=== PATIENT | female | born 1970 | race Caucasian/White ===

== ENCOUNTER 2016-05-24 01:07 | Emergency (ER) | payer MEDICARE ==
[2013-07-26 09:39] VITALS: BMI 42.9
[~2016-05-24 01:07] MED LIST: ATIVAN1 MG; CYMBALTA60 MG PO; DILANTIN50 MG PO; HYDROCHLOROTHIA25 MG PO; K-DUR20 MEQ PO; KEPPRA500 MG PO; NORCO 10/325 TA1 TA1 PO; TOPAMAX50 MG PO
== END 2016-05-24 02:20 | disposition home or self-care (01) ==
LOC: D.ER 01:07
DX: K08.89 Other specified disorders of teeth and supporting structures (principal); G40.909 Epilepsy, unspecified, not intractable, without status epilepticus; F43.10 Post-traumatic stress disorder, unspecified

== ENCOUNTER 2016-10-03 10:02 | Emergency (ER) | payer MEDICARE ==
[2013-07-26 09:39] VITALS: BMI 42.9
== END 2016-10-03 13:15 | disposition home or self-care (01) ==
LOC: D.ER 10:02
DX: F41.0 Panic disorder [episodic paroxysmal anxiety] (principal); F43.10 Post-traumatic stress disorder, unspecified; G40.909 Epilepsy, unspecified, not intractable, without status epilepticus; G43.909 Migraine, unspecified, not intractable, without status migrainosus

== ENCOUNTER 2016-12-03 02:28 | Emergency (ER) | payer MEDICARE ==
[2013-07-26 09:39] VITALS: BMI 42.9
[2016-12-03 03:19] LABS: BASOPHILS 0.2 % (0-2); EOSINOPHILS 0.3 % (0-7); HEMATOCRIT 40.6 % (36.0-48.0); IMMATURE GRANULOCYTES 0.2 % (0-5); LYMPHOCYTES 23.4 % (15-50); MCH 30.8 pg (26.0-34.0); MCHC 34.5 g/dL (31.0-37.0); MCV 89.2 fL (80.0-100.0); MEAN PLATELET VOLUME 9.9 fL (7.4-10.4); MONOCYTES 8.9 % (2-11); RBC 4.55 10x6/uL (4.00-5.40); WBC 13.3 10x3/uL (4.8-10.8)
[2016-12-03 03:21] LABS: PLATELET COUNT 235 10x3/uL (130-400)
[2016-12-03 03:32] LABS: ALBUMIN 3.7 g/dL (3.4-5.0); ANION GAP 14.5 mmol/L (8-16); BILIRUBIN - TOTAL 0.51 mg/dL (0.2-1.3); CALCIUM 9.6 mg/dL (8.5-10.1); CARBON DIOXIDE 30.1 mmol/L (21.0-32.0); CREATININE - SERUM 1.1 mg/dL (0.6-1.3); PROTEIN - SERUM 7.4 g/dL (6.4-8.2)
[2016-12-03 03:33] LABS: POTASSIUM - SERUM 2.6 mmol/L (3.5-5.1)
[2016-12-03 04:19] LABS: UDS - AMPHET NEGATIVE QUAL (NEGATIVE); UDS - BARB NEGATIVE QUAL (NEGATIVE); UDS - BENZO NEGATIVE QUAL (NEGATIVE); UDS - COCAINE NEGATIVE QUAL (NEGATIVE); UDS - METH NEGATIVE QUAL (NEGATIVE); UDS - OPIATE NEGATIVE QUAL (NEGATIVE); UDS - PCP NEGATIVE QUAL (NEGATIVE); UDS - THC NEGATIVE QUAL (NEGATIVE)
[2016-12-03 04:26] LABS: APPEARANCE CLEAR (CLEAR); BILIRUBIN NEGATIVE (NEGATIVE); COLOR YELLOW (YELLOW); GLUCOSE NEGATIVE (NEGATIVE); KETONE NEGATIVE (NEGATIVE); LEUKOCYTE ESTERASE 1+ (NEGATIVE); NITRITE NEGATIVE (NEGATIVE); PROTEIN TRACE mg/dL (NEGATIVE); UROBILINOGEN NORMAL (NORMAL)
[2016-12-03 04:28] LABS: BACTERIA FEW /hpf (NONE SEEN); EPITHELIAL CELLS 0-5 /hpf (0-5); RED CELLS - URINE 0-5 /hpf (0-5)
== END 2016-12-03 05:00 | disposition home or self-care (01) ==
LOC: D.ER 02:28
PROVIDERS: Emergency Medicine
DX: R56.9 Unspecified convulsions (principal)

== ENCOUNTER → 2017-01-13 13:56 | Outpatient (CLI) | payer MEDICARE ==
[2013-07-26 09:39] VITALS: BMI 42.9
== END | disposition home or self-care (01) ==
LOC: D.MRI 13:56
DX: M79.671 Pain in right foot (principal); Z85.820 Personal history of malignant melanoma of skin

== ENCOUNTER 2017-01-31 22:21 | Emergency (ER) | payer MEDICARE ==
[2013-07-26 09:39] VITALS: BMI 42.9
[2017-01-31 22:48] LABS: BASOPHILS 0.3 % (0-2); EOSINOPHILS 0.9 % (0-7); HEMOGLOBIN 13.7 g/dL (12-16); IMMATURE GRANULOCYTES 0.3 % (0-5); LYMPHOCYTES 30.9 % (15-50); MCH 31.5 pg (26.0-34.0); MCHC 34.3 g/dL (31.0-37.0); MEAN PLATELET VOLUME 10.1 fL (7.4-10.4); MONOCYTES 7.7 % (2-11); NEUTROPHILS 59.9 % (40-80); PLATELET COUNT 202 10x3/uL (130-400); RBC 4.35 10x6/uL (4.00-5.40); RDW 12.1 % (11.5-14.5); WBC 10.5 10x3/uL (4.8-10.8)
[2017-01-31 22:57] LABS: HCG SERUM NEGATIVE (NEGATIVE)
[2017-01-31 23:01] LABS: ALBUMIN 3.6 g/dL (3.4-5.0); BILIRUBIN - TOTAL 0.35 mg/dL (0.2-1.3); CALCIUM 9.2 mg/dL (8.5-10.1); CARBON DIOXIDE 24.6 mmol/L (21.0-32.0); CREATININE - SERUM 1.3 mg/dL (0.6-1.3); POTASSIUM - SERUM 3.6 mmol/L (3.5-5.1); PROTEIN - SERUM 7.2 g/dL (6.4-8.2)
[2017-01-31 23:48] LABS: APPEARANCE CLEAR (CLEAR); BILIRUBIN NEGATIVE (NEGATIVE); COLOR YELLOW (YELLOW); GLUCOSE NEGATIVE (NEGATIVE); KETONE NEGATIVE (NEGATIVE); LEUKOCYTE ESTERASE NEGATIVE (NEGATIVE); NITRITE NEGATIVE (NEGATIVE); PROTEIN NEGATIVE (NEGATIVE); UROBILINOGEN NORMAL (NORMAL)
== END 2017-02-01 01:30 | disposition home or self-care (01) ==
LOC: D.ER 22:21
PROVIDERS: Family Medicine
DX: K57.92 Diverticulitis of intestine, part unspecified, without perforation or abscess without bleeding (principal)

== ENCOUNTER 2017-02-07 22:54 | Emergency (ER) | payer MEDICARE ==
[2013-07-26 09:39] VITALS: BMI 42.9
[2017-02-08 00:28] LABS: BASOPHILS 0.3 % (0-2); EOSINOPHILS 0.3 % (0-7); HEMATOCRIT 39.4 % (36.0-48.0); HEMOGLOBIN 13.2 g/dL (12-16); IMMATURE GRANULOCYTES 0.5 % (0-5); LYMPHOCYTES 23.6 % (15-50); MCH 31.1 pg (26.0-34.0); MCHC 33.5 g/dL (31.0-37.0); MCV 92.7 fL (80.0-100.0); MEAN PLATELET VOLUME 10.2 fL (7.4-10.4); MONOCYTES 8.2 % (2-11); NEUTROPHILS 67.1 % (40-80); PLATELET COUNT 272 10x3/uL (130-400); RBC 4.25 10x6/uL (4.00-5.40); RDW 11.8 % (11.5-14.5); WBC 10.9 10x3/uL (4.8-10.8)
[2017-02-08 00:58] LABS: APPEARANCE CLEAR (CLEAR); BILIRUBIN NEGATIVE (NEGATIVE); COLOR YELLOW (YELLOW); GLUCOSE NEGATIVE (NEGATIVE); KETONE NEGATIVE (NEGATIVE); NITRITE NEGATIVE (NEGATIVE); PROTEIN NEGATIVE (NEGATIVE); UROBILINOGEN NORMAL (NORMAL)
[2017-02-08 00:58] LABS: ALBUMIN 3.5 g/dL (3.4-5.0); ANION GAP 11.5 mmol/L (8-16); BILIRUBIN - TOTAL 0.17 mg/dL (0.2-1.3); CALCIUM 9.1 mg/dL (8.5-10.1); CREATININE - SERUM 1.1 mg/dL (0.6-1.3); POTASSIUM - SERUM 3.5 mmol/L (3.5-5.1)
[2017-02-08 01:13] LABS: UDS - AMPHET NEGATIVE QUAL (NEGATIVE); UDS - BARB NEGATIVE QUAL (NEGATIVE); UDS - BENZO NEGATIVE QUAL (NEGATIVE); UDS - COCAINE NEGATIVE QUAL (NEGATIVE); UDS - OPIATE POSITIVE QUAL (NEGATIVE); UDS - PCP NEGATIVE QUAL (NEGATIVE); UDS - THC NEGATIVE QUAL (NEGATIVE)
== END 2017-02-08 04:27 | disposition home or self-care (01) ==
LOC: D.ER 22:54
PROVIDERS: Family Medicine
DX: G40.909 Epilepsy, unspecified, not intractable, without status epilepticus (principal); K57.92 Diverticulitis of intestine, part unspecified, without perforation or abscess without bleeding; F17.200 Nicotine dependence, unspecified, uncomplicated

== ENCOUNTER 2017-03-27 20:33 | Emergency (ER) | payer MEDICARE ==
[2013-07-26 09:39] VITALS: BMI 42.9
[2017-03-28 00:26] LABS: BASOPHILS 0.3 % (0-2); EOSINOPHILS 0.1 % (0-7); HEMATOCRIT 42.7 % (36.0-48.0); HEMOGLOBIN 14.4 g/dL (12-16); IMMATURE GRANULOCYTES 0.3 % (0-5); LYMPHOCYTES 16.2 % (15-50); MCH 30.7 pg (26.0-34.0); MCHC 33.7 g/dL (31.0-37.0); MEAN PLATELET VOLUME 10.7 fL (7.4-10.4); MONOCYTES 4.6 % (2-11); NEUTROPHILS 78.5 % (40-80); RBC 4.69 10x6/uL (4.00-5.40)
[2017-03-28 00:27] LABS: PLATELET COUNT 184 10x3/uL (130-400)
[2017-03-28 00:36] LABS: APPEARANCE HAZY (CLEAR); BACTERIA FEW /hpf (NONE SEEN); BILIRUBIN NEGATIVE (NEGATIVE); COLOR YELLOW (YELLOW); EPITHELIAL CELLS 0-5 /hpf (0-5); GLUCOSE NEGATIVE (NEGATIVE); KETONE NEGATIVE (NEGATIVE); NITRITE NEGATIVE (NEGATIVE); PROTEIN TRACE mg/dL (NEGATIVE); RED CELLS - URINE 0-5 /hpf (0-5); UROBILINOGEN NORMAL (NORMAL)
[2017-03-28 00:39] LABS: UDS - AMPHET NEGATIVE QUAL (NEGATIVE); UDS - BARB NEGATIVE QUAL (NEGATIVE); UDS - BENZO NEGATIVE QUAL (NEGATIVE); UDS - COCAINE NEGATIVE QUAL (NEGATIVE); UDS - OPIATE NEGATIVE QUAL (NEGATIVE); UDS - PCP NEGATIVE QUAL (NEGATIVE); UDS - THC NEGATIVE QUAL (NEGATIVE)
[2017-03-28 00:54] LABS: ALBUMIN 3.8 g/dL (3.4-5.0); BILIRUBIN - TOTAL 0.3 mg/dL (0.2-1.3); CALCIUM 9.7 mg/dL (8.5-10.1); CARBON DIOXIDE 24.1 mmol/L (21.0-32.0); CREATININE - SERUM 1.1 mg/dL (0.6-1.3); POTASSIUM - SERUM 4.1 mmol/L (3.5-5.1); PROTEIN - SERUM 7.3 g/dL (6.4-8.2)
== END 2017-03-28 01:47 | disposition home or self-care (01) ==
LOC: D.ER 20:33
PROVIDERS: Family Medicine
DX: R56.9 Unspecified convulsions (principal); N39.0 Urinary tract infection, site not specified; R00.0 Tachycardia, unspecified

== ENCOUNTER → 2017-05-19 10:35 | Outpatient (CLI) | payer MEDICARE ==
[2013-07-26 09:39] VITALS: BMI 42.9
== END | disposition home or self-care (01) ==
LOC: D.US 10:35
DX: R93.8 Abnormal findings on diagnostic imaging of other specified body structures (principal)

== ENCOUNTER → 2017-05-28 07:06 | Outpatient (CLI) | payer MEDICARE ==
[2013-07-26 09:39] VITALS: BMI 42.9
== END | disposition home or self-care (01) ==
LOC: D.US 07:06
DX: E04.1 Nontoxic single thyroid nodule (principal); Z85.820 Personal history of malignant melanoma of skin

== ENCOUNTER 2017-05-28 20:28 | Emergency (ER) | payer MEDICARE ==
[2013-07-26 09:39] VITALS: BMI 42.9
[2017-05-28 22:02] LABS: BASOPHILS 0.2 % (0-2); HEMATOCRIT 40.5 % (36.0-48.0); HEMOGLOBIN 13.5 g/dL (12-16); IMMATURE GRANULOCYTES 0.2 % (0-5); LYMPHOCYTES 26.1 % (15-50); MCH 30.8 pg (26.0-34.0); MCHC 33.3 g/dL (31.0-37.0); MCV 92.3 fL (80.0-100.0); MEAN PLATELET VOLUME 9.9 fL (7.4-10.4); MONOCYTES 7.7 % (2-11); NEUTROPHILS 64.8 % (40-80); PLATELET COUNT 192 10x3/uL (130-400); RBC 4.39 10x6/uL (4.00-5.40); RDW 12.1 % (11.5-14.5); WBC 8.3 10x3/uL (4.8-10.8)
[2017-05-28 22:20] LABS: ALBUMIN 3.8 g/dL (3.4-5.0); ANION GAP 15.1 mmol/L (8-16); BILIRUBIN - TOTAL 0.3 mg/dL (0.2-1.3); CARBON DIOXIDE 25.7 mmol/L (21.0-32.0); CREATININE - SERUM 1.4 mg/dL (0.6-1.3); POTASSIUM - SERUM 3.8 mmol/L (3.5-5.1); PROTEIN - SERUM 7.1 g/dL (6.4-8.2)
[2017-05-28 23:14] LABS: COLOR DK YELLOW (YELLOW)
[2017-05-28 23:15] LABS: APPEARANCE HAZY (CLEAR); BILIRUBIN NEGATIVE (NEGATIVE); GLUCOSE NEGATIVE (NEGATIVE); KETONE NEGATIVE (NEGATIVE); NITRITE NEGATIVE (NEGATIVE); PROTEIN NEGATIVE (NEGATIVE); UROBILINOGEN NORMAL (NORMAL)
[2017-05-28 23:16] LABS: BACTERIA FEW /hpf (NONE SEEN); EPITHELIAL CELLS 0-5 /hpf (0-5)
== END 2017-05-28 23:03 | disposition home or self-care (01) ==
LOC: D.ER 20:28
PROVIDERS: Family Medicine
DX: R56.9 Unspecified convulsions (principal)

== ENCOUNTER → 2017-06-15 08:58 | Outpatient (CLI) | payer MEDICARE ==
[2013-07-26 09:39] VITALS: BMI 42.9
== END | disposition home or self-care (01) ==
LOC: D.NM 08:58
DX: E04.1 Nontoxic single thyroid nodule (principal)

== ENCOUNTER 2017-06-24 18:24 | Emergency (ER) | payer MEDICARE, MEDICAID ==
[2013-07-26 09:39] VITALS: BMI 42.9
[2017-06-24 20:50] LABS: APPEARANCE CLEAR (CLEAR); BILIRUBIN NEGATIVE (NEGATIVE); COLOR YELLOW (YELLOW); GLUCOSE NEGATIVE (NEGATIVE); KETONE NEGATIVE (NEGATIVE); NITRITE NEGATIVE (NEGATIVE); PROTEIN NEGATIVE (NEGATIVE); UROBILINOGEN NORMAL (NORMAL)
[2017-06-24 20:51] LABS: HCG URINE NEGATIVE (NEGATIVE)
[2017-06-24 20:51] LABS: BASOPHILS 0.2 % (0-2); EOSINOPHILS 0.1 % (0-7); HEMATOCRIT 43.1 % (36.0-48.0); HEMOGLOBIN 14.9 g/dL (12-16); IMMATURE GRANULOCYTES 0.3 % (0-5); LYMPHOCYTES 13.6 % (15-50); MCH 31.2 pg (26.0-34.0); MCHC 34.6 g/dL (31.0-37.0); MCV 90.2 fL (80.0-100.0); MONOCYTES 5.5 % (2-11); NEUTROPHILS 80.3 % (40-80); PLATELET COUNT 225 10x3/uL (130-400); RBC 4.78 10x6/uL (4.00-5.40); RDW 11.9 % (11.5-14.5); WBC 14.4 10x3/uL (4.8-10.8)
[2017-06-24 21:04] LABS: ALBUMIN 4.3 g/dL (3.4-5.0); ANION GAP 16.8 mmol/L (8-16); BILIRUBIN - TOTAL 0.32 mg/dL (0.2-1.3); CALCIUM 9.6 mg/dL (8.5-10.1); CARBON DIOXIDE 22.7 mmol/L (21.0-32.0); CREATININE - SERUM 1.2 mg/dL (0.6-1.3); POTASSIUM - SERUM 3.5 mmol/L (3.5-5.1); PROTEIN - SERUM 7.9 g/dL (6.4-8.2)
== END 2017-06-25 00:19 | disposition home or self-care (01) ==
LOC: D.ER 18:24
PROVIDERS: Emergency Medicine
DX: R56.9 Unspecified convulsions (principal)

== ENCOUNTER 2017-07-08 14:07 | Emergency (ER) | payer MEDICARE, MEDICAID ==
[2013-07-26 09:39] VITALS: BMI 42.9
[~2017-07-08 14:07] MED LIST changes: -ATIVAN1 MG; +ATIVAN1 MG PO
[2017-08-10] MEDS ORDERED: EFFEXOR XR75 MG PO (12:25)
[2017-08-10] MEDS ORDERED: DESERYL100 MG PO (12:26)
[2017-08-10] MEDS ORDERED: ALDACTONE50 MG PO (12:27)
[2017-08-10] MEDS ORDERED: TROKENDI XR100 MG PO (12:28)
[2017-08-10] MEDS ORDERED: HYDROCODON-ACE1 EAC7 PO (12:28)
[2017-08-11] MEDS ORDERED: HYDROCODONE-APA1 TAB PO (08:48)
== END 2017-07-08 19:56 | disposition home or self-care (01) ==
LOC: D.ER 14:07
DX: F07.81 Postconcussional syndrome (principal); G40.909 Epilepsy, unspecified, not intractable, without status epilepticus

== ENCOUNTER → 2017-07-23 09:02 | Outpatient (CLI) | payer MEDICARE, MEDICAID ==
[2013-07-26 09:39] VITALS: BMI 42.9
[~2017-07-23 09:02] MED LIST changes: +ALDACTONE50 MG PO; +DESERYL100 MG PO; +EFFEXOR XR75 MG PO; +HYDROCODON-ACE1 EAC7 PO; +HYDROCODONE-APA1 TAB PO; +TROKENDI XR100 MG PO; +ZOFRAN4 MG PO
[2017-09-24 18:06] VITALS: BMI 33.0
== END | disposition home or self-care (01) ==
LOC: D.US 09:02
DX: R59.9 Enlarged lymph nodes, unspecified (principal); Z85.820 Personal history of malignant melanoma of skin

== ENCOUNTER → 2017-07-30 07:58 | Outpatient (CLI) | payer MEDICARE, MEDICAID ==
[2013-07-26 09:39] VITALS: BMI 42.9
[2017-09-24 18:06] VITALS: BMI 33.0
== END | disposition home or self-care (01) ==
LOC: D.CT 07:58
DX: R19.04 Left lower quadrant abdominal swelling, mass and lump (principal)

== ENCOUNTER 2017-08-10 18:05 | Emergency (ER) | payer MEDICARE, MEDICAID ==
[2013-07-26 09:39] VITALS: BMI 42.9
[~2017-08-10 18:05] MED LIST changes: -HYDROCODONE-APA1 TAB PO; -ZOFRAN4 MG PO
[2017-08-10 18:44] LABS: BASOPHILS 0.3 % (0-2); EOSINOPHILS 0.9 % (0-7); HEMATOCRIT 43.1 % (36.0-48.0); HEMOGLOBIN 14.6 g/dL (12-16); IMMATURE GRANULOCYTES 0.4 % (0-5); LYMPHOCYTES 33.3 % (15-50); MCH 30.8 pg (26.0-34.0); MCHC 33.9 g/dL (31.0-37.0); MCV 90.9 fL (80.0-100.0); MONOCYTES 8.2 % (2-11); NEUTROPHILS 56.9 % (40-80); PLATELET COUNT 204 10x3/uL (130-400); RBC 4.74 10x6/uL (4.00-5.40); RDW 12.2 % (11.5-14.5); WBC 10.4 10x3/uL (4.8-10.8)
[2017-08-10 18:57] LABS: APTT 23.8 SECONDS (22.8-39.4); INR 0.94 (0.85-1.17); PROTIME 12.2 SECONDS (11.6-15.0)
[2017-08-10 19:06] LABS: ALBUMIN 3.9 g/dL (3.4-5.0); ANION GAP 14.6 mmol/L (8-16); BILIRUBIN - TOTAL 0.37 mg/dL (0.2-1.3); CALCIUM 9.4 mg/dL (8.5-10.1); CARBON DIOXIDE 24.8 mmol/L (21.0-32.0); POTASSIUM - SERUM 4.4 mmol/L (3.5-5.1); PROTEIN - SERUM 7.8 g/dL (6.4-8.2)
[2017-08-10 21:00] LABS: APPEARANCE CLEAR (CLEAR); BILIRUBIN NEGATIVE (NEGATIVE); COLOR YELLOW (YELLOW); GLUCOSE NEGATIVE (NEGATIVE); KETONE NEGATIVE (NEGATIVE); NITRITE NEGATIVE (NEGATIVE); PROTEIN NEGATIVE (NEGATIVE); SPECIFIC GRAVITY 1.015 (1.005-1.020); UROBILINOGEN NORMAL (NORMAL)
[2017-08-10 21:05] LABS: UDS - AMPHET NEGATIVE QUAL (NEGATIVE); UDS - BARB NEGATIVE QUAL (NEGATIVE); UDS - BENZO NEGATIVE QUAL (NEGATIVE); UDS - COCAINE NEGATIVE QUAL (NEGATIVE); UDS - OPIATE POSITIVE QUAL (NEGATIVE); UDS - PCP NEGATIVE QUAL (NEGATIVE); UDS - THC NEGATIVE QUAL (NEGATIVE)
[2017-08-11] MEDS ORDERED: HYDROCODONE-APA1 TAB PO (08:48)
== END 2017-08-10 22:23 | disposition home or self-care (01) ==
LOC: D.ER 18:05
PROVIDERS: Emergency Medicine; Family Medicine
DX: R10.9 Unspecified abdominal pain (principal); R56.9 Unspecified convulsions

== ENCOUNTER → 2017-08-11 06:01 | Day surgery (SDC) | payer MEDICARE, MEDICAID ==
[~2017-08-11] VITALS: Ht 160 cm; Wt 104.3 kg
--- NOTE | ~2017-08-11 | OP ---
PATIENT NAME: CHICHO MCLAUGHLIN MEDICAL RECORD: [id number] :74 LOCATION:[facility] ADMISSION DATE: SURGEON: ANDRES CHRISTIANSON MD DATE OF OPERATION: 08/11/2017 PREOPERATIVE DIAGNOSES: 1. Bilateral lower quadrant abdominal subcutaneous masses. 2. Morbid obesity. POSTOPERATIVE DIAGNOSES: 1. Bilateral lower quadrant abdominal subcutaneous masses. 2. Morbid obesity. PROCEDURE: Excision of bilateral lower quadrant subcutaneous masses. SURGEON: Andres Christianson MD REPORT OF PROCEDURE: The patient's abdomen was prepped and draped in sterile fashion. We approached the left side first. In the lateral aspect of the left lower quadrant, a transverse incision was made overlying the mass. We dissected through the subcutaneous tissues and was eventually able to encounter a firm, calcified, fatty appearing mass that was just overlying the patient's fascia, but not incorporated with the fascia. This was elevated and completely removed. It did not penetrate into the muscular tissues. The mass was about 2.5 cm in greatest diameter. This was sent off for permanent specimen. We irrigated out the wound with normal saline and then reapproximated the subcutaneous tissues with interrupted 3-0 Vicryls. The skin was then closed with running subcutaneous 5-0 Monocryl. We then approached the right lower quadrant. On the lateral aspect of the inferior right lower quadrant, a transverse incision was made. We dissected down and encountered another 2.5 cm calcified, fatty lesion that was floating in the subcutaneous fat. This was completely excised and sent off for permanent specimen. We irrigated out the wound and stopped any bleeding with electrocautery. The subcutaneous tissues were reapproximated with interrupted 3-0 Vicryls and the skin was reapproximated with running subcutaneous 5-0 Monocryl. A total of 10 mL of 0.25% Marcaine with epinephrine was infused into the surrounding tissues and the wounds were dressed appropriately. COMPLICATIONS: None. CONDITION: Stable. ANESTHESIA: General endotracheal and local. BLOOD LOSS: Minimal. TRANSINT:[id number] Voice Confirmation ID: [id number] DOCUMENT ID: [id number] OPERATIVE REPORT [id number] EDITH MCLUAGHLINDILINDSAY Barrera ANDRES CHRISTIANSON MD at 1413 CC: LUZ ROMANO [id number] DICTATION DATE: 08/11/17 0854 WEBSITE DEVELOPER: 08/11/17 1015 [facility] [address] [place], [facility]901
[~2017-08-11 06:01] MED LIST changes: +HYDROCODONE-APA1 TAB PO; +ZOFRAN4 MG PO
[2017-08-11 06:56] VITALS: BP 120/85; Ht 160 cm; Wt 104.3 kg
== END | disposition home or self-care (01) ==
LOC: D.OPS 06:01 → D.PAN 08:00
DX: R22.9 Localized swelling, mass and lump, unspecified (principal); E66.01 Morbid (severe) obesity due to excess calories; Z01.812 Encounter for preprocedural laboratory examination

== ENCOUNTER 2017-09-12 16:10 | Emergency (ER) | payer MEDICARE, MEDICAID ==
[2017-08-11 06:56] VITALS: BMI 40.8
[~2017-09-12 16:10] MED LIST changes: -ZOFRAN4 MG PO
[2017-09-12 17:08] LABS: BASOPHILS 0.2 % (0-2); EOSINOPHILS 0.5 % (0-7); HEMATOCRIT 41.4 % (36.0-48.0); IMMATURE GRANULOCYTES 0.4 % (0-5); LYMPHOCYTES 16.3 % (15-50); MCH 30.6 pg (26.0-34.0); MCHC 33.8 g/dL (31.0-37.0); MCV 90.6 fL (80.0-100.0); MEAN PLATELET VOLUME 10.4 fL (7.4-10.4); MONOCYTES 5.8 % (2-11); NEUTROPHILS 76.8 % (40-80); PLATELET COUNT 179 10x3/uL (130-400); RBC 4.57 10x6/uL (4.00-5.40); RDW 11.7 % (11.5-14.5)
[2017-09-12 17:35] LABS: ALBUMIN 3.9 g/dL (3.4-5.0); ANION GAP 8.7 mmol/L (8-16); BILIRUBIN - TOTAL 0.2 mg/dL (0.2-1.3); CALCIUM 9.5 mg/dL (8.5-10.1); CARBON DIOXIDE 29.4 mmol/L (21.0-32.0); CREATININE - SERUM 1.2 mg/dL (0.6-1.3); POTASSIUM - SERUM 4.1 mmol/L (3.5-5.1); PROTEIN - SERUM 7.4 g/dL (6.4-8.2)
== END 2017-09-12 23:16 | disposition other institution (70) ==
LOC: D.ER 16:10
PROVIDERS: Emergency Medicine
DX: G40.909 Epilepsy, unspecified, not intractable, without status epilepticus (principal)

== ENCOUNTER 2017-09-24 09:20 | Day surgery (SDC) | payer MEDICARE, MEDICAID ==
[2017-09-23 12:40] LABS: BASOPHILS 0.3 % (0-2); HEMATOCRIT 41.8 % (36.0-48.0); IMMATURE GRANULOCYTES 0.3 % (0-5); LYMPHOCYTES 28.1 % (15-50); MCH 30.7 pg (26.0-34.0); MCHC 33.5 g/dL (31.0-37.0); MCV 91.7 fL (80.0-100.0); MONOCYTES 7.2 % (2-11); NEUTROPHILS 63.1 % (40-80); PLATELET COUNT 207 10x3/uL (130-400); RBC 4.56 10x6/uL (4.00-5.40); RDW 12.1 % (11.5-14.5); WBC 8.8 10x3/uL (4.8-10.8)
[2017-09-23 12:51] LABS: ANION GAP 17.1 mmol/L (8-16); CALCIUM 9.5 mg/dL (8.5-10.1); CARBON DIOXIDE 20.9 mmol/L (21.0-32.0); CREATININE - SERUM 1.2 mg/dL (0.6-1.3)
[2017-09-23 12:57] LABS: APTT 39.9 SECONDS (22.8-39.4); INR 1.19 (0.85-1.17); PROTIME 14.7 SECONDS (11.6-15.0)
[~2017-09-24] VITALS: Ht 160 cm; Wt 84.5 kg
--- NOTE | ~2017-09-24 | OP ---
PATIENT NAME: CHICHO MCLAUGHLIN MEDICAL RECORD: [id number] :74 LOCATION:[facility] ADMISSION DATE: SURGEON: ANDRES CHRISTIANSON MD DATE OF OPERATION: 09/24/2017 PREOPERATIVE DIAGNOSES: 1. Nontoxic multinodular goiter. 2. Left thyroid nodule with possible follicular neoplasm. 3. Morbid obesity. POSTOPERATIVE DIAGNOSES: 1. Nontoxic multinodular goiter. 2. Left thyroid nodule with possible follicular neoplasm. 3. Morbid obesity. PROCEDURE: Total thyroidectomy. SURGEON: Andres Christianson MD DIRECT SUPPORT SPECIALIST: Ethel Sargent APRN REPORT OF PROCEDURE: The patient's neck was prepped and draped in sterile fashion. A skin incision was made transversely through the neck of about 2 fingerbreadths above the sternal notch. Electrocautery was used to dissect through the subcutaneous tissues and platysma until we encountered the strap muscles. Subcutaneous flaps were made overlying the strap muscles superiorly and inferiorly. We then opened up the median raphe and we were able to visualize the patient's thyroid gland. We approached the right side of the thyroid, first a lot of the thin adhesions were taken down using a peanut. We approached the superior pole of the thyroid and took down the superior pole vessels which were treated with clips and ligation. Once we continued our dissection more inferiorly to the middle thyroidal vessels which were clipped and released and eventually stopped on the inferior thyroidal vessels which again were clipped and released. The thyroid was then mobilized medially and dissected off of the patient's trachea, parathyroid gland was visualized and noted to be in place. The recurrent laryngeal nerve was never seen on the right side. Once we had this completely mobilized medially and over the trachea, we pushed it back into position and approached the left thyroid. Again, we started superiorly and took down any of the adhesions we could with a peanut, eventually took down the superior pole vessels using clips and ligation. Once these were released, we went down inferiorly and took down the medial pole vessels with clips and ligation and finally the inferior pole vessels with clips and ligation. The left thyroid lobe was rotated medially and taken off of the trachea. At this point, it was completely released. This was marked appropriately and sent off for permanent specimen. We inspected the neck and any bleeding that was found was treated with clips or electrocautery. I did not see the recurrent laryngeal nerve on either side. I did see a parathyroid gland on both sides though. The wound was irrigated out thoroughly with normal saline. We then packed the wound with Gelfoam with thrombin. The strap muscles were then reapproximated with running 2-0 Vicryl. The platysma was closed with interrupted 3-0 Vicryl and the skin was closed with running subcutaneous 5-0 Monocryl. The wound was then dressed appropriately. COMPLICATIONS: None. OPERATIVE REPORT [id number] CHICHO MCLAUGHLIN CONDITION: Stable. ANESTHESIA: General endotracheal and local. BLOOD LOSS: Minimal. TRANSINT:[id number] Voice Confirmation ID: [id number] DOCUMENT ID: [id number] ANDRES CHRISTIANSON MD at 1031 CC: LUZ ROMANO [id number] DICTATION DATE: 09/24/17 1430 BIOINFORMATICS ANALYST: 09/24/17 1750 [facility] 09/25/17 [facility] [address] [place] [address]
[2017-09-24 11:04] VITALS: BP 117/77; BMI 42.9
[2017-09-24 16:19] VITALS: BP 124/86
[2017-09-24 18:06] VITALS: BP 118/70; Ht 160 cm; Wt 84.5 kg
[2017-09-24 22:29] VITALS: BP 115/97
[2017-09-25 04:53] VITALS: BP 140/84
[2017-09-25 08:26] VITALS: BP 112/75
[2017-09-25] MEDS ORDERED: ZOFRAN4 MG PO (08:47)
[2017-09-25] MEDS ORDERED: HYDROCODONE-APA1 TAB PO (08:47)
== END 2017-09-25 10:20 | disposition home or self-care (01) ==
LOC: OBSVTIME → D.MS 09:20 → D.SDCHOLD 09:20 → D.OPS 09:20 → D.MS 09:20 → D.SDCHOLD 11:50 → EDSTATUS 12:15 → OBSVTIME 14:21 → D.SDCHOLD 16:10 → D.MS 16:10 → D.OPS 09-25 10:20
PROVIDERS: Anesthesiology; Surgery
DX: E04.2 Nontoxic multinodular goiter (principal); E04.1 Nontoxic single thyroid nodule; E66.01 Morbid (severe) obesity due to excess calories; Z68.33 Body mass index [BMI] 33.0-33.9, adult

== ENCOUNTER 2017-11-09 12:00 | Emergency (ER) | payer MEDICARE, MEDICAID ==
[~2017-11-09] VITALS: Ht 160 cm; Wt 102.1 kg
[~2017-11-09 12:00] MED LIST changes: +ZOFRAN4 MG PO
[2017-11-09 12:05] VITALS: Ht 160 cm; Wt 102.1 kg
[2017-11-09 13:19] LABS: BASOPHILS 0.3 % (0-2); EOSINOPHILS 0.4 % (0-7); HEMATOCRIT 43.6 % (36.0-48.0); HEMOGLOBIN 14.6 g/dL (12-16); IMMATURE GRANULOCYTES 0.3 % (0-5); LYMPHOCYTES 27.8 % (15-50); MCH 30.9 pg (26.0-34.0); MCHC 33.5 g/dL (31.0-37.0); MCV 92.2 fL (80.0-100.0); MEAN PLATELET VOLUME 10.1 fL (7.4-10.4); MONOCYTES 5.2 % (2-11); PLATELET COUNT 215 10x3/uL (130-400); RBC 4.73 10x6/uL (4.00-5.40); RDW 12.5 % (11.5-14.5); WBC 9.8 10x3/uL (4.8-10.8)
[2017-11-09 13:40] LABS: ALBUMIN 4.3 g/dL (3.4-5.0); ALKALINE PHOSPHATASE 197 U/L (46-116); ALT (SGPT) 15 U/L (10-68); BILIRUBIN - TOTAL 0.23 mg/dL (0.2-1.3); CALC OSMOLALITY 286 mosm/kg (275-300); CALCIUM 9.5 mg/dL (8.5-10.1); CARBON DIOXIDE 23.2 mmol/L (21.0-32.0); CHLORIDE - SERUM 108 mmol/L (98-107); CREATININE - SERUM 1.3 mg/dL (0.6-1.3); GLUCOSE 117 mg/dL (74-106); POTASSIUM - SERUM 3.8 mmol/L (3.5-5.1); SODIUM 143 mmol/L (136-145); UREA NITROGEN 14 mg/dL (7-18); eGFR NON AFRICAN AMERICAN 47 mL/min (90-120)
[2017-11-09 13:53] LABS: C-REACTIVE PROTEIN 0.6 mg/dL (0.0-0.9); CKMB 1.5 U/L (0.0-3.6); CREATINE KINASE 130 UL (21-215); PRO BNP 143 pg/mL (0-125); TROPONIN-I < 0.017 ng/mL (0.000-0.060)
[2017-11-09 14:33] LABS: APPEARANCE CLEAR (CLEAR); BILIRUBIN NEGATIVE (NEGATIVE); COLOR YELLOW (YELLOW); GLUCOSE NEGATIVE (NEGATIVE); KETONE NEGATIVE (NEGATIVE); NITRITE NEGATIVE (NEGATIVE); PROTEIN NEGATIVE (NEGATIVE); SPECIFIC GRAVITY 1.025 (1.005-1.020); UROBILINOGEN NORMAL (NORMAL)
[2017-11-09 14:37] LABS: BACTERIA FEW /hpf (NONE SEEN); EPITHELIAL CELLS 0-5 /hpf (0-5); HYALINE CAST 0-5 /lpf (NONE SEEN); MUCUS >1+ /lpf (NONE SEEN); RED CELLS - URINE OCC /hpf (0-5); WHITE CELLS - URINE 0-5 /hpf (0-5)
[2017-11-09 15:59] LABS: UDS - AMPHET NEGATIVE QUAL (NEGATIVE); UDS - BARB NEGATIVE QUAL (NEGATIVE); UDS - BENZO NEGATIVE QUAL (NEGATIVE); UDS - COCAINE NEGATIVE QUAL (NEGATIVE); UDS - OPIATE NEGATIVE QUAL (NEGATIVE); UDS - PCP NEGATIVE QUAL (NEGATIVE); UDS - THC NEGATIVE QUAL (NEGATIVE)
[2017-11-09 17:02] VITALS: BP 127/60
== END 2017-11-09 18:45 | disposition other institution (70) ==
LOC: D.ER 12:00
PROVIDERS: Family Medicine
DX: G40.909 Epilepsy, unspecified, not intractable, without status epilepticus (principal)

== ENCOUNTER → 2017-11-30 09:07 | Outpatient (CLI) | payer MEDICARE, MEDICAID ==
[2017-11-09 12:05] VITALS: BMI 33.0
[~2017-11-30 09:07] MED LIST changes: +FLAGYL500 MG PO; +LEVOTHYROXINE125 MCG PO; +PHENERGAN25 M1 PO; +TYLENOL W/CODEI1 TAB PO
== END | disposition home or self-care (01) ==
LOC: D.RAD 09:07
DX: R13.10 Dysphagia, unspecified (principal)

== ENCOUNTER 2017-12-11 12:22 | Inpatient (IN) | payer MEDICARE, MEDICAID ==
[~2017-12-11] VITALS: Ht 160 cm; Wt 105.9 kg
--- NOTE | ~2017-12-11 | MORECARE ---
CASE MANAGEMENT DISCHARGE SUMMARY PATIENT: CHICHO JOHNSON UNIT: [id number] ADM DATE: 12/11/17 AGE: 47 : 74 SEX: F ROOM/BED: D.2233 AUTHOR: CASE, BRUSH PAINTER PHYSICIAN: REFERRING PHYSICIAN: EDUARD HERNÁNDEZ MD DATE OF SERVICE: 12/11/17 Discharge Plan Patient Name: CHICHO JOHNSON Facility: [facility]:[place] : 1970 Planned Disposition: Home Anticipated Discharge Date: 12/14/17 Discharge Date: Expected LOS: 3 Initial Reviewer: [email or web address] Initial Review Date: 12/14/2017 Generated: 12/14/17 10:24 am Comments DCP- Discharge Planning Updated by [email or web address]: Lakesha Chambers on 12/14/17 8:[address] Patient Name: CHICHO JOHNSON Admission Status: ER Accout number: [id number] Admission Date: 12-11-2017 : 1970 Admission Diagnosis: Attending: EDUARD HERNÁNDEZ Current LOS: 3 Anticipated DC Date: 12-14-2017 Planned Disposition: Home Primary Insurance: [employer] [facility] Discharge Planning Comments: CM met with patient to discuss discharge planning, she is alone in the room. States she lives in a safe environment with her mother. States her mother will take her home on discharge today. States she is independent with all ADL's and IADL's. Denies having DME or need for any DME. No needs identified at this time. CM will continue to follow and assist with discharge planning/needs. Recycling Attendant: Lakesha Chambers DCPIA - Discharge Planning Initial Assessment Updated by [email or web address]: Lakesha Chambers on 12/14/17 9:20 am * Is the patient Alert and Oriented? Yes * How many steps to enterexit or inside your home? * PCP LISET Diaz, at Dr. Hernández's office * Pharmacy [facility] * Preadmission Environment Home with Family * ADLs Independent * Equipment None * List name and contact numbers for known caregivers / representatives who currently or will assist patient after discharge: Julissa johnson - mother - [phone] * Verbal permission to speak to the caregivers and representatives has been obtained from the patient. Yes * Community resources currently utilized None * Additional services required to return to the preadmission environment? No * Can the patient safely return to the preadmission environment? Yes * Has this patient been hospitalized within the prior 30 days at any hospital? No Patient Name: CHICHO JOHNSON Page [phone] All edits/amendments must be made on the electronic document DICTATION DATE: 12/14/17923 WOODWORK TEACHER: 12/14/17923 RPT#: [id number] DC DATE: STATUS: ADM IN [facility] [address] [place] [address] END OF REPORT
[~2017-12-11 12:22] MED LIST changes: -FLAGYL500 MG PO; -LEVOTHYROXINE125 MCG PO; -PHENERGAN25 M1 PO; -TYLENOL W/CODEI1 TAB PO
[2017-12-11 15:03] LABS: BASOPHILS 0.3 % (0-2); EOSINOPHILS 0.9 % (0-7); HEMATOCRIT 39.6 % (36.0-48.0); HEMOGLOBIN 13.3 g/dL (12-16); IMMATURE GRANULOCYTES 0.3 % (0-5); MCH 30.4 pg (26.0-34.0); MCHC 33.6 g/dL (31.0-37.0); MCV 90.4 fL (80.0-100.0); MEAN PLATELET VOLUME 9.6 fL (7.4-10.4); MONOCYTES 4.9 % (2-11); NEUTROPHILS 61.6 % (40-80); PLATELET COUNT 245 10x3/uL (130-400); RBC 4.38 10x6/uL (4.00-5.40); RDW 11.9 % (11.5-14.5)
[2017-12-11 15:04] LABS: APPEARANCE CLEAR (CLEAR); BILIRUBIN NEGATIVE (NEGATIVE); COLOR YELLOW (YELLOW); GLUCOSE NEGATIVE (NEGATIVE); KETONE NEGATIVE (NEGATIVE); NITRITE NEGATIVE (NEGATIVE); PROTEIN NEGATIVE (NEGATIVE); SPECIFIC GRAVITY 1.025 (1.005-1.020); UROBILINOGEN NORMAL (NORMAL)
[2017-12-11 15:05] LABS: RED CELLS - URINE 0-5 /hpf (0-5); WHITE CELLS - URINE 0-5 /hpf (0-5)
[2017-12-11 15:06] LABS: BACTERIA MODERATE /hpf (NONE SEEN)
[2017-12-11 15:22] LABS: ALBUMIN 3.6 g/dL (3.4-5.0); ALKALINE PHOSPHATASE 168 U/L (46-116); ALT (SGPT) 14 U/L (10-68); BILIRUBIN - TOTAL 0.29 mg/dL (0.2-1.3); CALC OSMOLALITY 278 mosm/kg (275-300); CALCIUM 9.4 mg/dL (8.5-10.1); CARBON DIOXIDE 29.5 mmol/L (21.0-32.0); CHLORIDE - SERUM 104 mmol/L (98-107); CREATININE - SERUM 1.1 mg/dL (0.6-1.3); GLUCOSE 105 mg/dL (74-106); POTASSIUM - SERUM 4.2 mmol/L (3.5-5.1); PROTEIN - SERUM 7.4 g/dL (6.4-8.2); SODIUM 140 mmol/L (136-145); UREA NITROGEN 12 mg/dL (7-18); eGFR NON AFRICAN AMERICAN 57 mL/min (90-120)
[2017-12-11 15:28] LABS: AMYLASE - SERUM 52 U/L (25-115); LIPASE 56 U/L (73-393)
[2017-12-11 15:29] LABS: TROPONIN-I < 0.017 ng/mL (0.000-0.060)
[2017-12-11 16:33] VITALS: BP 129/72
[2017-12-11 17:00] VITALS: BP 138/42
[2017-12-11 18:00] VITALS: BP 138/72
[2017-12-11 21:57] VITALS: BP 105/60
[2017-12-11] MEDS ORDERED: LEVOTHYROXINE125 MCG PO (22:01)
[2017-12-11] MEDS ORDERED: TYLENOL W/CODEI1 TAB PO (22:01)
[2017-12-12] VITALS (8 sets, daily range): BP systolic 90–122; BP diastolic 53–77; Ht 160 cm; Wt 105.9 kg
[2017-12-12 06:47] LABS: BASOPHILS 0.6 % (0-2); EOSINOPHILS 0.9 % (0-7); HEMATOCRIT 33.5 % (36.0-48.0); HEMOGLOBIN 11.2 g/dL (12-16); IMMATURE GRANULOCYTES 0.2 % (0-5); LYMPHOCYTES 43.6 % (15-50); MCH 29.9 pg (26.0-34.0); MCHC 33.4 g/dL (31.0-37.0); MCV 89.6 fL (80.0-100.0); MEAN PLATELET VOLUME 9.5 fL (7.4-10.4); MONOCYTES 5.8 % (2-11); NEUTROPHILS 48.9 % (40-80); RBC 3.74 10x6/uL (4.00-5.40); RDW 11.9 % (11.5-14.5)
[2017-12-12 06:57] LABS: PLATELET COUNT 180 10x3/uL (130-400); WBC 5.3 10x3/uL (4.8-10.8)
[2017-12-12 07:07] LABS: ALBUMIN 2.7 g/dL (3.4-5.0); ANION GAP 10.8 mmol/L (8-16); BILIRUBIN - TOTAL 0.41 mg/dL (0.2-1.3); CALCIUM 8.4 mg/dL (8.5-10.1); CARBON DIOXIDE 27.6 mmol/L (21.0-32.0); CREATININE - SERUM 0.9 mg/dL (0.6-1.3)
[2017-12-12 07:13] LABS: POTASSIUM - SERUM 4.4 mmol/L (3.5-5.1); PROTEIN - SERUM 5.4 g/dL (6.4-8.2)
[2017-12-13 04:02] VITALS: BP 94/51
[2017-12-13 05:10] LABS: BASOPHILS 0.5 % (0-2); EOSINOPHILS 0.9 % (0-7); HEMATOCRIT 34.2 % (36.0-48.0); HEMOGLOBIN 11.3 g/dL (12-16); IMMATURE GRANULOCYTES 0.2 % (0-5); LYMPHOCYTES 42.5 % (15-50); MCH 30.1 pg (26.0-34.0); MEAN PLATELET VOLUME 9.7 fL (7.4-10.4); MONOCYTES 6.6 % (2-11); NEUTROPHILS 49.3 % (40-80); PLATELET COUNT 163 10x3/uL (130-400); RBC 3.76 10x6/uL (4.00-5.40); RDW 11.8 % (11.5-14.5); WBC 4.4 10x3/uL (4.8-10.8)
[2017-12-13 05:32] LABS: ANION GAP 10.6 mmol/L (8-16); CALCIUM 8.3 mg/dL (8.5-10.1); CARBON DIOXIDE 27.2 mmol/L (21.0-32.0); POTASSIUM - SERUM 3.8 mmol/L (3.5-5.1)
[2017-12-13 05:36] LABS: CREATININE - SERUM 1.2 mg/dL (0.6-1.3)
[2017-12-13 08:25] VITALS: BP 95/51
[2017-12-13 12:37] VITALS: BP 107/59
[2017-12-13 16:07] VITALS: BP 113/80
[2017-12-13 20:30] VITALS: BP 104/65
[2017-12-14 00:30] VITALS: BP 139/87
[2017-12-14 04:30] VITALS: BP 115/69
[2017-12-14 06:37] LABS: BASOPHILS 0.5 % (0-2); EOSINOPHILS 2.4 % (0-7); IMMATURE GRANULOCYTES 0.2 % (0-5); LYMPHOCYTES 41.1 % (15-50); MCH 30.2 pg (26.0-34.0); MCHC 33.3 g/dL (31.0-37.0); MCV 90.7 fL (80.0-100.0); MEAN PLATELET VOLUME 9.8 fL (7.4-10.4); MONOCYTES 8.1 % (2-11); NEUTROPHILS 47.7 % (40-80); PLATELET COUNT 162 10x3/uL (130-400); RBC 3.64 10x6/uL (4.00-5.40); WBC 4.2 10x3/uL (4.8-10.8)
[2017-12-14 06:56] LABS: ANION GAP 10.9 mmol/L (8-16); CALCIUM 8.1 mg/dL (8.5-10.1); CARBON DIOXIDE 26.7 mmol/L (21.0-32.0); CREATININE - SERUM 1.2 mg/dL (0.6-1.3); POTASSIUM - SERUM 3.6 mmol/L (3.5-5.1)
[2017-12-14] MEDS ORDERED: PHENERGAN25 M1 PO (07:41)
[2017-12-14] MEDS ORDERED: FLAGYL500 MG PO (07:42)
[2017-12-14 08:13] VITALS: BP 107/65
== END 2017-12-14 10:20 | disposition home or self-care (01) | DRG 690 ==
LOC: D.ER 12:22 → D.MS 19:40
PROVIDERS: Family Medicine
DX: N39.0 Urinary tract infection, site not specified (principal); K57.92 Diverticulitis of intestine, part unspecified, without perforation or abscess without bleeding; G40.909 Epilepsy, unspecified, not intractable, without status epilepticus

== ENCOUNTER 2018-01-11 21:05 | Emergency (ER) | payer MEDICARE, MEDICAID ==
[~2018-01-11] VITALS: Ht 160 cm; Wt 100.5 kg
[~2018-01-11 21:05] MED LIST changes: +FLAGYL500 MG PO; +LEVOTHYROXINE125 MCG PO; +PHENERGAN25 M1 PO; +TYLENOL W/CODEI1 TAB PO
[2018-01-11 21:18] VITALS: Ht 160 cm; Wt 100.5 kg
[2018-01-11 23:32] LABS: HEMATOCRIT 37.2 % (36.0-48.0); LYMPHOCYTES 19.8 % (15-50); MCH 30.7 pg (26.0-34.0); MCHC 34.9 g/dL (31.0-37.0); MCV 87.7 fL (80.0-100.0); MEAN PLATELET VOLUME 9.2 fL (7.4-10.4); NEUTROPHILS 72.6 % (40-80); RBC 4.24 10x6/uL (4.00-5.40); RDW 11.5 % (11.5-14.5); WBC 10.2 10x3/uL (4.8-10.8)
[2018-01-11 23:36] LABS: PLATELET COUNT 240 10x3/uL (130-400)
[2018-01-11 23:40] LABS: ALBUMIN 3.4 g/dL (3.4-5.0); ALKALINE PHOSPHATASE 156 U/L (46-116); ALT (SGPT) 19 U/L (10-68); BILIRUBIN - TOTAL 0.14 mg/dL (0.2-1.3); CALC OSMOLALITY 283 mosm/kg (275-300); CALCIUM 8.4 mg/dL (8.5-10.1); CARBON DIOXIDE 28.7 mmol/L (21.0-32.0); CHLORIDE - SERUM 107 mmol/L (98-107); CREATININE - SERUM 1.4 mg/dL (0.6-1.3); GLUCOSE 100 mg/dL (74-106); POTASSIUM - SERUM 4.1 mmol/L (3.5-5.1); PROTEIN - SERUM 6.9 g/dL (6.4-8.2); SODIUM 143 mmol/L (136-145); UREA NITROGEN 9 mg/dL (7-18); eGFR NON AFRICAN AMERICAN 43 mL/min (90-120)
[2018-01-11 23:58] LABS: CREATINE KINASE 247 UL (21-215); MAGNESIUM - SERUM 1.9 mg/dL (1.8-2.4)
[2018-01-12 00:25] VITALS: BP 122/76
== END 2018-01-12 00:25 | disposition home or self-care (01) ==
LOC: D.ER 21:05
PROVIDERS: Emergency Medicine
DX: G40.909 Epilepsy, unspecified, not intractable, without status epilepticus (principal)

== ENCOUNTER → 2018-03-01 15:36 | Outpatient (CLI) | payer MEDICARE, MEDICAID ==
[2018-01-11 21:18] VITALS: BMI 39.2
== END | disposition home or self-care (01) ==
LOC: D.MRI 02-25 08:30
DX: M25.512 Pain in left shoulder (principal)

== ENCOUNTER 2018-04-22 05:05 | Day surgery (SDC) | payer MEDICARE, MEDICAID ==
[2018-04-21 08:35] LABS: BASOPHILS 0.4 % (0-2); EOSINOPHILS 0.6 % (0-7); HEMATOCRIT 42.3 % (36.0-48.0); HEMOGLOBIN 14.3 g/dL (12-16); IMMATURE GRANULOCYTES 0.1 % (0-5); LYMPHOCYTES 44.2 % (15-50); MCH 31.6 pg (26.0-34.0); MCHC 33.8 g/dL (31.0-37.0); MCV 93.6 fL (80.0-100.0); MEAN PLATELET VOLUME 10.1 fL (7.4-10.4); MONOCYTES 7.6 % (2-11); NEUTROPHILS 47.1 % (40-80); PLATELET COUNT 205 10x3/uL (130-400); RBC 4.52 10x6/uL (4.00-5.40); RDW 12.6 % (11.5-14.5)
[2018-04-21 08:45] LABS: APTT 31.3 SECONDS (22.8-39.4); INR 1.01 (0.85-1.17); PROTIME 12.8 SECONDS (11.6-15.0)
[2018-04-21 08:57] LABS: ANION GAP 13.9 mmol/L (8-16); CALCIUM 9.2 mg/dL (8.5-10.1); CARBON DIOXIDE 28.8 mmol/L (21.0-32.0); CREATININE - SERUM 1.3 mg/dL (0.6-1.3); POTASSIUM - SERUM 3.7 mmol/L (3.5-5.1)
[~2018-04-22] VITALS: Ht 160 cm; Wt 102.1 kg
--- NOTE | ~2018-04-22 | OP ---
PATIENT NAME: CHICHO MCLAUGHLIN MEDICAL RECORD: [id number] :74 LOCATION:[facility] ADMISSION DATE: SURGEON: NO HUGHES, TU CABRERA DATE OF OPERATION: 04/22/2018 PREOPERATIVE DIAGNOSES: 1. Biceps tendinitis of the left shoulder. 2. Impingement syndrome of the left shoulder. 3. SLAP lesion, left shoulder. POSTOPERATIVE DIAGNOSES: 1. Biceps tendinitis of the left shoulder. 2. Impingement syndrome of the left shoulder. 3. SLAP lesion, left shoulder. PROCEDURES: 1. Arthroscopic biceps tenotomy. 2. Arthroscopic subacromial decompression with acromioplasty and bursectomy. SURGEON: Tu Sarabia MD ANESTHESIA: General. INTRAOPERATIVE COMPLICATIONS: None. SUMMARY OF PATHOLOGIC FINDINGS: The patient had bicipital labral lesion; however, given the severe biceps tendinitis, I felt like tenotomy was better treatment and gentle debridement of the labrum was done along with subacromial decompression. OPERATIVE SUMMARY IN DETAIL: After obtaining the appropriate preoperative orthopedic surgery consent as well as anesthetic consultation, evaluation, and clearance, the patient was brought to the operating room and placed on the operating table in the supine position. After general laryngeal mask was administered, the patient was placed in the right lateral decubitus position. All pressure points were well padded to include down leg peroneal pad as well as axillary roll. The patient was held firmly to the operating table using the vacuum pack suction system. Left upper extremity and shoulder were then prepped and draped in routine sterile fashion. Arm was held in the Arthrex traction boom at 30 degrees of forward flexion, 30 degrees of abduction, and 10 pounds of traction laterally. Arthroscopy was established in the glenohumeral joint from posterior portal. Anterior portal was established in anterior safe interval. Diagnostic arthroscopy did reveal the above findings. Gentle debridement of the superior aspect of the glenoid as well as the torn labral tissues was done from posterior to anterior. The Arthrex tissue ablation system was then utilized to perform a complete tenotomy. Having completed this, attention was turned to the subacromial space. Excoriation of the coracoacromial ligament was noted with superficial attritional changes of the rotator cuff. The Arthrex tissue ablation system was utilized to denude the undersurface of the acromion of all soft tissue elements and release the coracoacromial ligament. A 5-0 barrel bur was then used to perform acromioplasty at the level of acromioclavicular joint. Having completed this, gentle debridement of the entire bursa along with some torn fibers at the superficial aspect of the rotator cuff was debrided. Having completed this, arthroscopy portals were closed in routine interrupted fashion using 4-0 Prolene. Sterile dressings were applied. The patient was awakened OPERATIVE REPORT [id number] CHICHO MCLAUGHLIN and taken to the recovery room in stable condition. All final needle and sponge counts were correct. TRANSINT:[id number] Voice Confirmation ID: [id number] DOCUMENT ID: [id number] NO HUGHES, TU CABRERA at 1116 CC: [id number] DICTATION DATE: 04/22/18818 TOWER HAND: 04/22/18 1714 [facility] 04/22/18 [facility] [address] [place] [address]
[2018-04-22 06:05] VITALS: BP 108/76; Ht 160 cm; Wt 102.1 kg
[2018-04-22] MEDS ORDERED: NORCO 10-325 TA1 TAB PO (08:17)
== END 2018-04-22 09:45 | disposition home or self-care (01) ==
LOC: D.OPS 05:05 → D.PAN 08:00 → D.OPS 09:05 → D.PAN 10:00 → D.OPS 11:15
PROVIDERS: Anesthesiology
DX: M75.22 Bicipital tendinitis, left shoulder (principal); M75.42 Impingement syndrome of left shoulder; S43.432A Superior glenoid labrum lesion of left shoulder, initial encounter; X58.XXXA Exposure to other specified factors, initial encounter; Z01.812 Encounter for preprocedural laboratory examination

== ENCOUNTER 2018-05-07 17:17 | Observation (INO) | payer MEDICARE, MEDICAID ==
[~2018-05-07] VITALS: Ht 160 cm; Wt 103.0 kg
[~2018-05-07 17:17] MED LIST changes: +NORCO 10-325 TA1 TAB PO
[2018-05-07 18:23] LABS: BASOPHILS 0.3 % (0-2); EOSINOPHILS 0.5 % (0-7); HEMATOCRIT 46.2 % (36.0-48.0); HEMOGLOBIN 15.6 g/dL (12-16); IMMATURE GRANULOCYTES 0.2 % (0-5); LYMPHOCYTES 27.8 % (15-50); MCH 31.6 pg (26.0-34.0); MCHC 33.8 g/dL (31.0-37.0); MCV 93.7 fL (80.0-100.0); MONOCYTES 6.4 % (2-11); NEUTROPHILS 64.8 % (40-80); RBC 4.93 10x6/uL (4.00-5.40); RDW 12.7 % (11.5-14.5)
[2018-05-07 18:24] LABS: PLATELET COUNT 307 10x3/uL (130-400)
[2018-05-07 18:42] LABS: ALBUMIN 4.3 g/dL (3.4-5.0); BILIRUBIN - TOTAL 0.76 mg/dL (0.2-1.3); CALCIUM 10.3 mg/dL (8.5-10.1); CREATININE - SERUM 1.4 mg/dL (0.6-1.3); PROTEIN - SERUM 8.1 g/dL (6.4-8.2)
[2018-05-07 19:19] LABS: MAGNESIUM - SERUM 1.8 mg/dL (1.8-2.4)
[2018-05-07 21:44] LABS: APPEARANCE CLEAR (CLEAR); BILIRUBIN NEGATIVE (NEGATIVE); COLOR YELLOW (YELLOW); GLUCOSE NEGATIVE (NEGATIVE); KETONE NEGATIVE (NEGATIVE); NITRITE NEGATIVE (NEGATIVE); PROTEIN NEGATIVE (NEGATIVE); SPECIFIC GRAVITY 1.015 (1.005-1.020); UROBILINOGEN NORMAL (NORMAL)
[2018-05-07 21:45] LABS: UDS - AMPHET NEGATIVE QUAL (NEGATIVE); UDS - BARB NEGATIVE QUAL (NEGATIVE); UDS - BENZO NEGATIVE QUAL (NEGATIVE); UDS - COCAINE NEGATIVE QUAL (NEGATIVE); UDS - OPIATE POSITIVE QUAL (NEGATIVE); UDS - PCP NEGATIVE QUAL (NEGATIVE); UDS - THC NEGATIVE QUAL (NEGATIVE)
[2018-05-07 21:46] LABS: BACTERIA FEW /hpf (NONE SEEN); RED CELLS - URINE OCC /hpf (0-5); WHITE CELLS - URINE 0-5 /hpf (0-5)
[2018-05-08] MEDS ORDERED: TOPAMAX50 MG PO (01:29)
[2018-05-08 02:27] VITALS: BP 81/57; BMI 40.3
[2018-05-08 07:08] LABS: BASOPHILS 0.4 % (0-2); EOSINOPHILS 0.4 % (0-7); IMMATURE GRANULOCYTES 0.1 % (0-5); LYMPHOCYTES 38.7 % (15-50); MCH 30.5 pg (26.0-34.0); MCHC 32.1 g/dL (31.0-37.0); MCV 94.9 fL (80.0-100.0); MONOCYTES 9.2 % (2-11); NEUTROPHILS 51.2 % (40-80); RDW 12.6 % (11.5-14.5)
[2018-05-08 07:13] LABS: HEMATOCRIT 35.5 % (36.0-48.0); HEMOGLOBIN 11.4 g/dL (12-16); PLATELET COUNT 193 10x3/uL (130-400); RBC 3.74 10x6/uL (4.00-5.40); WBC 7.9 10x3/uL (4.8-10.8)
[2018-05-08 07:33] LABS: BILIRUBIN - TOTAL 0.5 mg/dL (0.2-1.3); CREATININE - SERUM 1.2 mg/dL (0.6-1.3); MAGNESIUM - SERUM 1.7 mg/dL (1.8-2.4); POTASSIUM - SERUM 3.6 mmol/L (3.5-5.1)
[2018-05-08 07:34] LABS: ALBUMIN 2.9 g/dL (3.4-5.0); ANION GAP 15.5 mmol/L (8-16); CARBON DIOXIDE 22.1 mmol/L (21.0-32.0); PROTEIN - SERUM 5.9 g/dL (6.4-8.2)
[2018-05-08 08:37] VITALS: BMI 40.2
[2018-05-08 09:35] VITALS: Ht 160 cm; Wt 103.0 kg
[2018-05-08 09:41] VITALS: BP 93/60
[2018-05-08 12:16] VITALS: BP 94/54
[2018-05-08 16:53] VITALS: BP 122/75
[2018-05-08 17:32] VITALS: BP 127/75
[2018-05-08 20:00] VITALS: BP 86/52
[2018-05-09] VITALS: BP 93/40
[2018-05-09 04:00] VITALS: BP 98/61
[2018-05-09 09:24] VITALS: BP 105/72
[2018-05-09 13:06] VITALS: BP 108/71
[2018-05-09 17:18] VITALS: BP 109/57
[2018-05-09 20:00] VITALS: BP 103/64
[2018-05-10] VITALS: BP 102/58
[2018-05-10 04:00] VITALS: BP 110/66
[2018-05-10] MEDS ORDERED: NORCO 10-325 TA1 TAB PO (07:34)
== END 2018-05-10 08:58 | disposition home or self-care (01) ==
LOC: D.ER 17:17 → D.MS 05-08 00:42 → OBSVTIME 05-08 00:42 → D.SDCHOLD 05-08 18:40 → D.MS 05-08 18:42
PROVIDERS: Emergency Medicine; Family Medicine; ADMIT Family Medicine
DX: S22.089A Unspecified fracture of T11-T12 vertebra, initial encounter for closed fracture (principal); W18.30XA Fall on same level, unspecified, initial encounter; G40.909 Epilepsy, unspecified, not intractable, without status epilepticus; S20.229A Contusion of unspecified back wall of thorax, initial encounter; F32.9 Major depressive disorder, single episode, unspecified; F43.10 Post-traumatic stress disorder, unspecified

== ENCOUNTER → 2018-06-04 10:37 | Outpatient (CLI) | payer MEDICARE, MEDICAID ==
[2018-05-08 09:35] VITALS: BMI 40.2
== END | disposition home or self-care (01) ==
LOC: D.MRI 10:37
DX: M25.512 Pain in left shoulder (principal)

== ENCOUNTER 2018-07-09 14:11 | Emergency (ER) | payer MEDICARE, MEDICAID ==
[~2018-07-09] VITALS: Ht 160 cm; Wt 99.5 kg
[2018-07-09 14:12] VITALS: Ht 160 cm; Wt 99.5 kg
[2018-07-09 15:10] LABS: BASOPHILS 0.3 % (0-2); EOSINOPHILS 0.4 % (0-7); HEMATOCRIT 44.9 % (36.0-48.0); HEMOGLOBIN 15.3 g/dL (12-16); IMMATURE GRANULOCYTES 0.4 % (0-5); MCH 31.7 pg (26.0-34.0); MCHC 34.1 g/dL (31.0-37.0); MCV 93.2 fL (80.0-100.0); MEAN PLATELET VOLUME 10.1 fL (7.4-10.4); MONOCYTES 5.3 % (2-11); NEUTROPHILS 59.6 % (40-80); PLATELET COUNT 190 10x3/uL (130-400); RBC 4.82 10x6/uL (4.00-5.40); RDW 11.7 % (11.5-14.5)
[2018-07-09 15:37] LABS: ALBUMIN 3.9 g/dL (3.4-5.0); ANION GAP 20.8 mmol/L (8-16); BILIRUBIN - TOTAL 0.38 mg/dL (0.2-1.3); CALCIUM 9.4 mg/dL (8.5-10.1); CARBON DIOXIDE 20.2 mmol/L (21.0-32.0); CREATININE - SERUM 1.5 mg/dL (0.6-1.3); PROTEIN - SERUM 7.7 g/dL (6.4-8.2)
[2018-07-09 16:44] LABS: APPEARANCE TURBID (CLEAR); BILIRUBIN NEGATIVE (NEGATIVE); COLOR YELLOW (YELLOW); GLUCOSE NEGATIVE (NEGATIVE); KETONE NEGATIVE (NEGATIVE); NITRITE NEGATIVE (NEGATIVE); PROTEIN 1+ mg/dL (NEGATIVE); SPECIFIC GRAVITY 1.025 (1.005-1.020); UROBILINOGEN NORMAL (NORMAL)
[2018-07-09 16:46] LABS: BACTERIA FEW /hpf (NONE SEEN); EPITHELIAL CELLS 0-5 /hpf (0-5); RED CELLS - URINE OCC /hpf (0-5); WHITE CELLS - URINE OCC /hpf (0-5)
[2018-07-09 16:47] LABS: AMORPHOUS SEDIMENT >1+ /lpf (NONE SEEN)
[2018-07-09 16:51] LABS: UDS - AMPHET NEGATIVE QUAL (NEGATIVE); UDS - BARB NEGATIVE QUAL (NEGATIVE); UDS - BENZO NEGATIVE QUAL (NEGATIVE); UDS - COCAINE NEGATIVE QUAL (NEGATIVE); UDS - OPIATE NEGATIVE QUAL (NEGATIVE); UDS - PCP NEGATIVE QUAL (NEGATIVE); UDS - THC NEGATIVE QUAL (NEGATIVE)
[2018-07-09 17:59] VITALS: BP 119/81
== END 2018-07-09 17:33 | disposition home or self-care (01) ==
LOC: D.ER 14:11
PROVIDERS: Family Medicine
DX: G40.909 Epilepsy, unspecified, not intractable, without status epilepticus (principal); F13.239 Sedative, hypnotic or anxiolytic dependence with withdrawal, unspecified

== ENCOUNTER 2018-08-18 17:43 | Emergency (ER) | payer MEDICARE, MEDICAID ==
[~2018-08-18] VITALS: Ht 160 cm; Wt 102.3 kg
[2018-08-18 17:56] VITALS: Ht 160 cm; Wt 102.3 kg
[2018-08-18 18:30] LABS: BASOPHILS 0.3 % (0-2); EOSINOPHILS 0.1 % (0-7); HEMATOCRIT 39.3 % (36.0-48.0); HEMOGLOBIN 13.4 g/dL (12-16); IMMATURE GRANULOCYTES 0.2 % (0-5); LYMPHOCYTES 13.4 % (15-50); MCH 31.2 pg (26.0-34.0); MCHC 34.1 g/dL (31.0-37.0); MCV 91.6 fL (80.0-100.0); MEAN PLATELET VOLUME 9.8 fL (7.4-10.4); MONOCYTES 3.6 % (2-11); NEUTROPHILS 82.4 % (40-80); PLATELET COUNT 170 10x3/uL (130-400); RBC 4.29 10x6/uL (4.00-5.40); RDW 11.9 % (11.5-14.5)
[2018-08-18 18:41] LABS: APPEARANCE CLEAR (CLEAR); BILIRUBIN NEGATIVE (NEGATIVE); COLOR YELLOW (YELLOW); GLUCOSE NEGATIVE (NEGATIVE); KETONE NEGATIVE (NEGATIVE); NITRITE NEGATIVE (NEGATIVE); PROTEIN TRACE mg/dL (NEGATIVE); SPECIFIC GRAVITY 1.025 (1.005-1.020); UROBILINOGEN NORMAL (NORMAL)
[2018-08-18 18:51] LABS: ALBUMIN 4.1 g/dL (3.4-5.0); ANION GAP 14.4 mmol/L (8-16); BILIRUBIN - TOTAL 0.34 mg/dL (0.2-1.3); CALCIUM 9.4 mg/dL (8.5-10.1); CARBON DIOXIDE 25.4 mmol/L (21.0-32.0); CREATININE - SERUM 1.1 mg/dL (0.6-1.3); POTASSIUM - SERUM 3.8 mmol/L (3.5-5.1); PROTEIN - SERUM 7.6 g/dL (6.4-8.2)
[2018-08-18 20:27] VITALS: BP 147/97
== END 2018-08-18 20:29 | disposition home or self-care (01) ==
LOC: D.ER 17:43
PROVIDERS: Family Medicine
DX: G40.909 Epilepsy, unspecified, not intractable, without status epilepticus (principal); Z91.14 Patient's other noncompliance with medication regimen

== ENCOUNTER → 2018-09-08 10:10 | Outpatient (CLI) | payer MEDICARE, MEDICAID ==
[2018-08-18 17:56] VITALS: BMI 39.9
== END | disposition home or self-care (01) ==
LOC: D.RAD 09-07 11:00 → D.MRI 09-07 12:00 → D.RAD 10:10
PROVIDERS: ATTEND Orthopaedic Surgery
DX: M25.512 Pain in left shoulder (principal)

== ENCOUNTER 2018-10-26 23:31 | Emergency (ER) | payer MEDICARE ==
[~2018-10-26] VITALS: Ht 160 cm; Wt 99.5 kg
[2018-10-26 23:35] VITALS: Ht 160 cm; Wt 99.5 kg
[2018-10-27 00:06] LABS: HEMATOCRIT 43.1 % (36.0-48.0); HEMOGLOBIN 14.6 g/dL (12-16); LYMPHOCYTES 32.9 % (15-50); MCH 31.1 pg (26.0-34.0); MCHC 33.9 g/dL (31.0-37.0); MCV 91.7 fL (80.0-100.0); MEAN PLATELET VOLUME 9.1 fL (7.4-10.4); NEUTROPHILS 60.3 % (40-80); RDW 11.5 % (11.5-14.5); WBC 10.4 10x3/uL (4.8-10.8)
[2018-10-27 00:07] LABS: PLATELET COUNT 246 10x3/uL (130-400)
[2018-10-27 00:14] LABS: ALBUMIN 4.3 g/dL (3.4-5.0); ANION GAP 14.6 mmol/L (8-16); BILIRUBIN - TOTAL 0.3 mg/dL (0.2-1.3); CALCIUM 9.7 mg/dL (8.5-10.1); CARBON DIOXIDE 26.6 mmol/L (21.0-32.0); CREATININE - SERUM 1.3 mg/dL (0.6-1.3); MAGNESIUM - SERUM 2.1 mg/dL (1.8-2.4); POTASSIUM - SERUM 4.2 mmol/L (3.5-5.1); PROTEIN - SERUM 7.8 g/dL (6.4-8.2)
--- NOTE | 2018-10-27 00:35 | NUR ---
DR. COHEN NOTIFIED AND REVIEWED PT'S BEHAVIOR AND ASSESSMENT RESULTS. PT IS A LOW RISK PER DR. COHEN. DR. COHEN STATED TO GIVE RESOURCES TO PT AT TIME OF DISCHARGE. NO FURTHER ORDERS AT THIS TIME. RESOURCES REVIEWED WITH PT AND SHE VERBALIZED UNDERSTANDING.
[2018-10-27 01:44] VITALS: BP 150/111
== END 2018-10-27 01:44 | disposition home or self-care (01) ==
LOC: D.ER 23:31
PROVIDERS: Family Medicine
DX: G40.909 Epilepsy, unspecified, not intractable, without status epilepticus (principal); F41.9 Anxiety disorder, unspecified

== ENCOUNTER 2018-11-29 07:25 | Day surgery (SDC) | payer MEDICARE ==
[2018-11-26 10:01] LABS: HEMATOCRIT 42.3 % (36.0-48.0); HEMOGLOBIN 14.6 g/dL (12-16); MCH 31.8 pg (26.0-34.0); MCHC 34.5 g/dL (31.0-37.0); MCV 92.2 fL (80.0-100.0); MEAN PLATELET VOLUME 9.3 fL (7.4-10.4); PLATELET COUNT 211 10x3/uL (130-400); RBC 4.59 10x6/uL (4.00-5.40); RDW 12.7 % (11.5-14.5); WBC 10.8 10x3/uL (4.8-10.8)
[2018-11-26 10:09] LABS: ANION GAP 15.4 mmol/L (8-16); APTT 31.3 SECONDS (22.8-39.4); CALCIUM 9.4 mg/dL (8.5-10.1); CARBON DIOXIDE 23.9 mmol/L (21.0-32.0); CREATININE - SERUM 1.1 mg/dL (0.6-1.3); INR 0.97 (0.85-1.17); POTASSIUM - SERUM 4.3 mmol/L (3.5-5.1); PROTIME 12.4 SECONDS (11.6-15.0)
[~2018-11-29] VITALS: Ht 160 cm; Wt 97.5 kg
[2018-11-29 08:51] VITALS: BP 114/115; Ht 160 cm; Wt 97.5 kg
[2018-11-29] MEDS ORDERED: HYDROCODON-ACE1 EA10 PO (11:22)
--- NOTE | 2018-12-02 12:35 | OP ---
PATIENT NAME: CHICHO MCLAUGHLIN MEDICAL RECORD: [id number] :74 LOCATION:[facility] ADMISSION DATE: SURGEON: TU SARABIA MD DATE OF OPERATION: 11/29/2018 PREOPERATIVE DIAGNOSIS: Labral tear of the left shoulder. POSTOPERATIVE DIAGNOSIS: Labral tear of the left shoulder. PROCEDURE: Arthroscopic labral debridement of the left shoulder. SURGEON: Tu Sarabia MD ANESTHESIA: General. INTRAOPERATIVE COMPLICATIONS: None. SUMMARY OF PATHOLOGIC FINDINGS: The patient had a bucket-handle type tear of the posterior labrum that was white-white area and more suitable to debridement than reattachment. OPERATIVE SUMMARY IN DETAIL: After obtaining the appropriate preoperative orthopedic surgery consent as well as anesthetic consultation, evaluation, and clearance, the patient was brought to the operating room and placed on the operating table in supine position. After adequate general laryngeal mask airway was administered, the patient was placed in a right lateral decubitus position. All pressure points were well padded to include down leg peroneal pad as well as axillary roll. She was held firmly to the operating table using the vacuum pack suction system. Left upper extremity and shoulder were then prepped and draped in routine sterile fashion. Arm was held in the Arthrex traction boom at 30 of forward flexion, 30 degrees of abduction, 10 pounds of traction laterally. At this point, the appropriate timeout was taken with the appropriate patient identifiers and agreed upon by all in the OR suite. Arthroscopy was then established in the glenohumeral joint from the posterior portal. Anterior portal was established in the anterior safe interval. Diagnostic arthroscopy did show the patient to have a labral tear. The rotator cuff was indeed intact. The patient had had a prior tenotomy. The labrum was debrided. No evidence of chondromalacia was seen. After debridement of the labrum, the subacromial space was checked. The patient had an adequate decompression. The rotator cuff was intact without evidence of any pathology. Having completed this, arthroscopy portals were closed in routine interrupted fashion using 4-0 Prolene. Sterile dressings were applied. The patient was awakened, taken to recovery room in stable condition. All final needle and sponge counts were correct. TRANSINT:[id number] Voice Confirmation ID: [id number] DOCUMENT ID: [id number] OPERATIVE REPORT [id number] LISSETTETU KELLEY MD at 1235 CC: [id number] DICTATION DATE: 12/02/18 1049 BARREL HEADER: 12/02/18 1109 [facility] 11/29/18 [address] [place] [address]
== END 2018-11-29 13:58 | disposition home or self-care (01) ==
LOC: D.OPS 07:25 → D.PAN 10:40 → D.OPS 10:40 → D.PAN 12:30 → D.OPS 13:58
PROVIDERS: Anesthesiology; ATTEND Orthopaedic Surgery
DX: S43.432A Superior glenoid labrum lesion of left shoulder, initial encounter (principal); X58.XXXA Exposure to other specified factors, initial encounter

== ENCOUNTER 2019-02-22 20:44 | Emergency (ER) | payer MEDICARE, MEDICAID ==
[~2019-02-22] VITALS: Ht 160 cm; Wt 95.5 kg
[~2019-02-22 20:44] MED LIST changes: +HYDROCODON-ACE1 EA10 PO
[2019-02-22 21:11] VITALS: Ht 160 cm; Wt 95.5 kg
[2019-02-22 22:04] LABS: BASOPHILS 0.2 % (0-2); EOSINOPHILS 0.1 % (0-7); HEMATOCRIT 42.9 % (36.0-48.0); HEMOGLOBIN 14.4 g/dL (12-16); IMMATURE GRANULOCYTES 0.2 % (0-5); LYMPHOCYTES 12.3 % (15-50); MCH 32.1 pg (26.0-34.0); MCHC 33.6 g/dL (31.0-37.0); MCV 95.5 fL (80.0-100.0); MEAN PLATELET VOLUME 10.1 fL (7.4-10.4); MONOCYTES 4.5 % (2-11); NEUTROPHILS 82.7 % (40-80); RBC 4.49 10x6/uL (4.00-5.40); RDW 11.8 % (11.5-14.5); WBC 15.2 10x3/uL (4.8-10.8)
[2019-02-22 22:06] LABS: PLATELET COUNT 262 10x3/uL (130-400)
[2019-02-22 22:20] LABS: ALBUMIN 4.4 g/dL (3.4-5.0); ANION GAP 14.7 mmol/L (8-16); BILIRUBIN - TOTAL 0.35 mg/dL (0.2-1.3); CALCIUM 10.1 mg/dL (8.5-10.1); CARBON DIOXIDE 26.5 mmol/L (21.0-32.0); CREATININE - SERUM 1.3 mg/dL (0.6-1.3); POTASSIUM - SERUM 3.2 mmol/L (3.5-5.1); PROTEIN - SERUM 7.9 g/dL (6.4-8.2)
[2019-02-22 23:52] LABS: APPEARANCE CLEAR (CLEAR); BILIRUBIN NEGATIVE (NEGATIVE); COLOR YELLOW (YELLOW); GLUCOSE NEGATIVE (NEGATIVE); KETONE NEGATIVE (NEGATIVE); NITRITE NEGATIVE (NEGATIVE); PROTEIN 1+ mg/dL (NEGATIVE); UROBILINOGEN NORMAL (NORMAL)
[2019-02-22 23:53] LABS: UDS - AMPHET NEGATIVE QUAL (NEGATIVE); UDS - BARB NEGATIVE QUAL (NEGATIVE); UDS - BENZO NEGATIVE QUAL (NEGATIVE); UDS - COCAINE NEGATIVE QUAL (NEGATIVE); UDS - OPIATE NEGATIVE QUAL (NEGATIVE); UDS - PCP NEGATIVE QUAL (NEGATIVE); UDS - THC NEGATIVE QUAL (NEGATIVE)
[2019-02-22 23:54] LABS: BACTERIA MODERATE /hpf (NEGATIVE); EPITHELIAL CELLS 0-5 /hpf (0-5); HYALINE CAST 0-5 /lpf (NONE SEEN); MUCUS <1+ /lpf (NONE SEEN); RED CELLS - URINE 0-5 /hpf (0-5); WHITE CELLS - URINE 0-5 /hpf (NEGATIVE)
[2019-02-23 00:35] VITALS: BP 168/97
== END 2019-02-23 00:35 | disposition home or self-care (01) ==
LOC: D.ER 20:44
PROVIDERS: Family Medicine
DX: F13.239 Sedative, hypnotic or anxiolytic dependence with withdrawal, unspecified (principal); R56.9 Unspecified convulsions; F32.9 Major depressive disorder, single episode, unspecified

== ENCOUNTER 2019-09-12 11:30 | Emergency (ER) | payer MEDICARE, MEDICAID ==
[~2019-09-12] VITALS: Ht 160 cm; Wt 81.4 kg
[~2019-09-12 11:30] MED LIST changes: +EC-NAPROSYN500 MG PO; +ZPAK PO
[2019-09-12 11:34] VITALS: Ht 160 cm; Wt 81.4 kg
[2019-09-12 12:04] LABS: BASOPHILS 0.5 % (0-2); EOSINOPHILS 0.7 % (0-7); HEMATOCRIT 43.6 % (36.0-48.0); HEMOGLOBIN 13.8 g/dL (12-16); IMMATURE GRANULOCYTES 0.3 % (0-5); LYMPHOCYTES 28.9 % (15-50); MCH 29.1 pg (26.0-34.0); MCHC 31.7 g/dL (31.0-37.0); MCV 91.8 fL (80.0-100.0); MEAN PLATELET VOLUME 9.6 fL (7.4-10.4); MONOCYTES 6.9 % (2-11); NEUTROPHILS 62.7 % (40-80); RBC 4.75 10x6/uL (4.00-5.40); WBC 8.9 10x3/uL (4.8-10.8)
[2019-09-12 12:20] LABS: CALC OSMOLALITY 285 mosm/kg (275-300); CALCIUM 9.1 mg/dL (8.5-10.1); CARBON DIOXIDE 24.9 mmol/L (21.0-32.0); CHLORIDE - SERUM 106 mmol/L (98-107); CREATININE - SERUM 1.3 mg/dL (0.6-1.3); GLUCOSE 138 mg/dL (74-106); POTASSIUM - SERUM 4.9 mmol/L (3.5-5.1); SODIUM 141 mmol/L (136-145); UREA NITROGEN 20 mg/dL (7-18); eGFR NON AFRICAN AMERICAN 46 mL/min (90-120)
[2019-09-12 12:21] LABS: PLATELET COUNT 232 10x3/uL (130-400)
[2019-09-12 12:29] LABS: ALBUMIN 4.3 g/dL (3.4-5.0); ALKALINE PHOSPHATASE 190 U/L (30-120); ALT (SGPT) 16 U/L (10-68); BILIRUBIN - TOTAL 0.38 mg/dL (0.2-1.3); CKMB 1.7 U/L (0.0-3.6); CREATINE KINASE 91 UL (21-215); MAGNESIUM - SERUM 1.9 mg/dL (1.8-2.4); PROTEIN - SERUM 7.7 g/dL (6.4-8.2)
[2019-09-12 12:30] LABS: TROPONIN-I < 0.017 ng/mL (0.000-0.060)
[2019-09-12 13:39] VITALS: BP 121/78
== END 2019-09-12 13:40 | disposition home or self-care (01) ==
LOC: D.ER 11:30
PROVIDERS: Family Medicine
DX: F41.9 Anxiety disorder, unspecified (principal); G40.909 Epilepsy, unspecified, not intractable, without status epilepticus; E07.9 Disorder of thyroid, unspecified

== ENCOUNTER 2019-10-28 15:05 | Emergency (ER) | payer MEDICARE, MEDICAID ==
[~2019-10-28] VITALS: Ht 160 cm; Wt 87.7 kg
[2019-10-28 15:12] VITALS: Ht 160 cm; Wt 87.7 kg
[2019-10-28 16:13] LABS: BASOPHILS 0.3 % (0-2); EOSINOPHILS 0.2 % (0-7); HEMATOCRIT 41.5 % (36.0-48.0); HEMOGLOBIN 13.4 g/dL (12-16); IMMATURE GRANULOCYTES 0.6 % (0-5); LYMPHOCYTES 19.4 % (15-50); MCH 29.8 pg (26.0-34.0); MCHC 32.3 g/dL (31.0-37.0); MCV 92.4 fL (80.0-100.0); MEAN PLATELET VOLUME 9.7 fL (7.4-10.4); NEUTROPHILS 72.5 % (40-80); PLATELET COUNT 209 10x3/uL (130-400); RBC 4.49 10x6/uL (4.00-5.40); RDW 13.1 % (11.5-14.5); WBC 12.7 10x3/uL (4.8-10.8)
[2019-10-28 16:58] LABS: ANION GAP 13.8 mmol/L (8-16); CALCIUM 9.7 mg/dL (8.5-10.1); CARBON DIOXIDE 24.2 mmol/L (21.0-32.0); CREATININE - SERUM 1.3 mg/dL (0.6-1.3)
[2019-10-28 17:04] LABS: ALBUMIN 4.3 g/dL (3.4-5.0); BILIRUBIN - TOTAL 0.29 mg/dL (0.2-1.3); MAGNESIUM - SERUM 2.2 mg/dL (1.8-2.4); PROTEIN - SERUM 7.7 g/dL (6.4-8.2)
[2019-10-28 17:31] LABS: UDS - AMPHET NEGATIVE QUAL (NEGATIVE); UDS - BARB NEGATIVE QUAL (NEGATIVE); UDS - BENZO NEGATIVE QUAL (NEGATIVE); UDS - COCAINE NEGATIVE QUAL (NEGATIVE); UDS - OPIATE NEGATIVE QUAL (NEGATIVE); UDS - PCP NEGATIVE QUAL (NEGATIVE); UDS - THC NEGATIVE QUAL (NEGATIVE)
[2019-10-28 17:49] LABS: BILIRUBIN NEGATIVE (NEGATIVE); GLUCOSE NEGATIVE (NEGATIVE); HCG URINE NEGATIVE (NEGATIVE); KETONE NEGATIVE (NEGATIVE); NITRITE NEGATIVE (NEGATIVE); SPECIFIC GRAVITY 1.025 (1.005-1.020); UROBILINOGEN NORMAL (NORMAL)
[2019-10-28 18:08] VITALS: BP 134/92
== END 2019-10-28 18:58 | disposition home or self-care (01) ==
LOC: D.ER 15:05
PROVIDERS: Family Medicine
DX: Z91.14 Patient's other noncompliance with medication regimen (principal); S80.00XA Contusion of unspecified knee, initial encounter; R56.9 Unspecified convulsions; R07.9 Chest pain, unspecified; E03.9 Hypothyroidism, unspecified; X58.XXXA Exposure to other specified factors, initial encounter

== ENCOUNTER 2019-10-31 14:42 | Inpatient (IN) | payer MEDICARE, MEDICAID ==
[~2019-10-31] VITALS: Ht 160 cm; Wt 83.9 kg
[2019-10-31 15:21] LABS: BASOPHILS 0.2 % (0-2); EOSINOPHILS 1.1 % (0-7); HEMATOCRIT 42.6 % (36.0-48.0); HEMOGLOBIN 13.7 g/dL (12-16); IMMATURE GRANULOCYTES 0.2 % (0-5); LYMPHOCYTES 19.7 % (15-50); MCH 29.5 pg (26.0-34.0); MCHC 32.2 g/dL (31.0-37.0); MCV 91.6 fL (80.0-100.0); MEAN PLATELET VOLUME 9.6 fL (7.4-10.4); MONOCYTES 7.4 % (2-11); NEUTROPHILS 71.4 % (40-80); RBC 4.65 10x6/uL (4.00-5.40); WBC 11.1 10x3/uL (4.8-10.8)
[2019-10-31 15:31] LABS: PLATELET COUNT 264 10x3/uL (130-400)
--- NOTE | 2019-10-31 15:35 | NUR ---
URINE SPEC COLLECTED, LABELED AT BS AND SENT TO LAB
--- NOTE | 2019-10-31 15:40 | NUR ---
CHEMO COULTER SCREENER AT . REPORTS PT NEEDS SITTER. REPORTS PT NEEDS A SITTER AND SHE WILL STAY UNTIL SOMEONE ELSE IS AVAILABLE
--- NOTE | 2019-10-31 15:45 | NUR ---
DR. COHEN NOTIFIED AND SITTER ORDERED. SITTER AT BEDSIDE. NOTIFIED CHARGE NURSE AND ATTENDING IN REGARDS TO ASSESSMENT FINDINGS. RESOURCES GIVEN TO PT AND SAFETY PLAN INITIATED.
[2019-10-31 15:57] LABS: AMYLASE - SERUM 52 U/L (25-115)
[2019-10-31 15:58] LABS: LIPASE 40 U/L (73-393)
[2019-10-31 16:06] LABS: ANION GAP 15.5 mmol/L (8-16); CALCIUM 9.5 mg/dL (8.5-10.1); CARBON DIOXIDE 23.5 mmol/L (21.0-32.0); CREATININE - SERUM 1.3 mg/dL (0.6-1.3)
[2019-10-31 16:11] LABS: ALBUMIN 4.2 g/dL (3.4-5.0); BILIRUBIN - TOTAL 0.62 mg/dL (0.2-1.3); MAGNESIUM - SERUM 1.7 mg/dL (1.8-2.4); PROTEIN - SERUM 7.9 g/dL (6.4-8.2)
[2019-10-31 16:30] LABS: BILIRUBIN NEGATIVE (NEGATIVE); GLUCOSE NEGATIVE (NEGATIVE); KETONE NEGATIVE (NEGATIVE); NITRITE NEGATIVE (NEGATIVE); UROBILINOGEN NORMAL (NORMAL)
[2019-10-31 16:36] LABS: UDS - AMPHET NEGATIVE QUAL (NEGATIVE); UDS - BARB NEGATIVE QUAL (NEGATIVE); UDS - BENZO NEGATIVE QUAL (NEGATIVE); UDS - COCAINE NEGATIVE QUAL (NEGATIVE); UDS - OPIATE NEGATIVE QUAL (NEGATIVE); UDS - PCP NEGATIVE QUAL (NEGATIVE); UDS - THC NEGATIVE QUAL (NEGATIVE)
[2019-10-31 16:43] VITALS: BP 133/88
--- NOTE | 2019-10-31 17:04 | NUR ---
CALLED ALIN AT THE [facility] RE: NEED [facility]O PSY PLACEMENT AND [facility] IS PTS PREFERENCE. ALL INFO FAXED TO ALIN
[2019-10-31] MEDS ORDERED: PEPCID40 MG PO (17:14)
--- NOTE | 2019-10-31 18:14 | NUR ---
ALIN FROM [facility] CALLED BACK AND REPORTS [facility] DECLINED D/T MEDICAL
[2019-10-31 18:48] VITALS: BP 132/74
--- NOTE | 2019-10-31 19:05 | NUR ---
REPORT TO [facility]
--- NOTE | 2019-10-31 20:06 | NUR ---
PT SITTING UP AND EATING. SITTER PRESENT.
[2019-10-31] MEDS ORDERED: HYDROXYZINE HCL50 MG PO (21:12)
[2019-10-31] MEDS ORDERED: TRAZODONE PO (21:12)
[2019-10-31] MEDS ORDERED: EFFEXOR75 MG PO (21:13)
[2019-10-31] MEDS ORDERED: MELATONIN5 MG PO (21:13)
--- NOTE | 2019-10-31 21:16 | NUR ---
HOME MED LIST AND RADIOLOGY REPORTS FAXED TO [facility].
--- NOTE | 2019-10-31 21:22 | NUR ---
PT DECLINED PER [facility].
--- NOTE | 2019-10-31 21:44 | NUR ---
SPOKE TO TRANSFER CENTER- [facility] HAS TALKED TO [facility] AND NOW [facility] WITH NO BED CAPABILITY.
--- NOTE | 2019-10-31 22:19 | NUR ---
SPOKE TO [facility] PATIENT WILL HAVE TO HAVE A NEGATIVE COVID SWAB BEFORE THEY CAN ACCEPT. SPOKE TO DR WOLF. WILL PLACE PATIENT IN OBSERVATION WITH SITTER UNTIL SWAB RETURNS. SPOKE TO EXPERIENTIAL THERAPIST AND MADE HER AWARE OF ISSUE.
--- NOTE | 2019-10-31 22:38 | NUR ---
COVID SWAB TO LAB.
[2019-11-01 00:49] VITALS: BP 137/85; BMI 32.8
--- NOTE | 2019-11-01 00:55 | NUR ---
GAVE PRN HYDROXYZINE 50 MG PO TO HELP PT RELAX AND SLEEP.
[2019-11-01 04:00] VITALS: BP 136/82
[2019-11-01 05:55] LABS: BASOPHILS 0.3 % (0-2); EOSINOPHILS 3.2 % (0-7); HEMATOCRIT 38.6 % (36.0-48.0); HEMOGLOBIN 12.3 g/dL (12-16); IMMATURE GRANULOCYTES 0.2 % (0-5); LYMPHOCYTES 44.7 % (15-50); MCH 29.3 pg (26.0-34.0); MCHC 31.9 g/dL (31.0-37.0); MCV 91.9 fL (80.0-100.0); MEAN PLATELET VOLUME 9.6 fL (7.4-10.4); MONOCYTES 9.7 % (2-11); NEUTROPHILS 41.9 % (40-80)
[2019-11-01 06:49] LABS: PLATELET COUNT 203 10x3/uL (130-400); WBC 6.6 10x3/uL (4.8-10.8)
[2019-11-01 07:04] LABS: ALBUMIN 3.6 g/dL (3.4-5.0); ANION GAP 12.8 mmol/L (8-16); BILIRUBIN - TOTAL 0.51 mg/dL (0.2-1.3); CARBON DIOXIDE 24.9 mmol/L (21.0-32.0); POTASSIUM - SERUM 3.7 mmol/L (3.5-5.1); PROTEIN - SERUM 6.5 g/dL (6.4-8.2); THYROID STIMULATING HORMONE 4.33 uIU/mL (0.36-3.74)
[2019-11-01 07:05] LABS: CREATININE - SERUM 0.9 mg/dL (0.6-1.3)
--- NOTE | 2019-11-01 08:30 | NUR ---
ASSESSMENT PER FLOW SHEET. SUICIDE PREVENTION IN PLACE,SITTER AT DOOR. PATIENT STATES," SHE FEELS BETTER AND WILL BE FINE LONG SHE IS NOT HOME WITH HER MOM AND SISTER". MONITOR FOR NEEDS
[2019-11-01 09:01] VITALS: BP 93/48
[2019-11-01 12:37] VITALS: BP 109/75
[2019-11-01 13:43] VITALS: Ht 160 cm; Wt 83.9 kg
[2019-11-01 16:47] VITALS: BP 119/80
--- NOTE | 2019-11-01 18:48 | NUR ---
REMAINS WITHOUT DISTRESS. PATIENT IS WITHOUT CHAGE. SITTER REMAINS IN LIEBERMAN. CONT PLAN OF CARE
[2019-11-01 20:00] VITALS: BP 113/75
--- NOTE | 2019-11-01 20:40 | NUR ---
LYING IN BED. ALERT AND ORIENTED X4. ANXIOUS. SITTER IN LINE OF SIGHT. RESP EVEN AND NONLABORED. SIDERAILS ARE PADDED FOR SEIZURE PRECAUTIONS. SCDS IN USE BILAT. BRUISE NOTED TO LT BREAST FROM FALLING DURING HER LAST SEIZURE SHE STATES SHE HAD ON THURSDAY. [facility] LOCK NOTED TO LT AC. MEDICATED WITH ATARAX FOR ANXIETY. DENIES SUCIDAL THOUGHTS AT THIS TIME.
--- NOTE | 2019-11-01 22:28 | NUR ---
C/O INABILITY TO GET COMFORTABLE AND PAIN IN LT BREAST. LARGE BRUISE NOTED TO LT BREAST FROM FALLING DURING SEIZURE LAST THURSDAY. NOTIFIED DR NGUYEN OF PT C/O PAIN. NEW ORDER NOTED FOR TYLENOL AND MEDICATED AT THIS TIME.
[2019-11-02] VITALS: BP 104/67
--- NOTE | 2019-11-02 00:40 | NUR ---
PT SITTING UP IN BED ROCKING BACK AND FORTH. VERY ANXIOUS, TEARFUL. PT APPEARS TO BE HAVING A PANIC ATTACK. REASSURED PT SHE WAS SAFE AND SAT BY PT AND ENCOURAGED HER TO EXPRESS HER FEELINGS. PT EVENTUALLY CALMED DOWN. SITTER IN LINE OF SIGHT.
--- NOTE | 2019-11-02 02:15 | NUR ---
MEDICATED WITH ATARAX PER REQUEST FOR ANXIETY.
[2019-11-02 04:00] VITALS: BP 110/68
[2019-11-02 05:24] LABS: BASOPHILS 0.1 % (0-2); EOSINOPHILS 2.8 % (0-7); HEMATOCRIT 37.1 % (36.0-48.0); HEMOGLOBIN 11.9 g/dL (12-16); IMMATURE GRANULOCYTES 0.1 % (0-5); LYMPHOCYTES 41.3 % (15-50); MCH 29.2 pg (26.0-34.0); MCHC 32.1 g/dL (31.0-37.0); MCV 91.2 fL (80.0-100.0); MEAN PLATELET VOLUME 9.3 fL (7.4-10.4); MONOCYTES 8.4 % (2-11); NEUTROPHILS 47.3 % (40-80); PLATELET COUNT 192 10x3/uL (130-400); RBC 4.07 10x6/uL (4.00-5.40); RDW 12.7 % (11.5-14.5); WBC 7.5 10x3/uL (4.8-10.8)
[2019-11-02 05:58] LABS: ALBUMIN 3.6 g/dL (3.4-5.0); ANION GAP 11.7 mmol/L (8-16); BILIRUBIN - TOTAL 0.36 mg/dL (0.2-1.3); CALCIUM 8.6 mg/dL (8.5-10.1); CREATININE - SERUM 1.1 mg/dL (0.6-1.3); POTASSIUM - SERUM 3.7 mmol/L (3.5-5.1); PROTEIN - SERUM 6.3 g/dL (6.4-8.2)
--- NOTE | 2019-11-02 06:23 | NUR ---
RESTING ON RT SIDE WITH EYES CLOSED. RESP EVEN AND NONLABORED. NO DISTRESS. IN LINE OF SIGHT OF SITTER. HAS MADE NO ATTEMPT TO HARM SELF TONIGHT. CL IN REACH.
--- NOTE | 2019-11-02 07:45 | NUR ---
BEDSIDE REPORT RECIEVED ASSUMED CARE. PATIENT IN BED WITH IV INTACT. EYES CLOSED RESTING QUIETLY. CALL LIGHT WITHIN REACH.
--- NOTE | 2019-11-02 12:30 | NUR ---
PATTIENT SITTING UP IN BED EATING AT THIS TIME. NO COMPLAINTS OR SIGNS OF DISTRESS. CALL LIGHT WITHIN REACH.
[2019-11-02 12:40] VITALS: BP 109/69
--- NOTE | 2019-11-02 13:02 | CN ---
PATIENT NAME:CHICHO MCLAUGHLIN MEDICAL RECORD: [id number] : 74 LOCATION:D.MS Leon2209 ADMIT DATE: 10/31/19 ACCOUNT: [id number] CONSULTING PHYSICIAN: SERGIO COHEN MD REFERRING PHYSICIAN: ANTHONY RAO DO DATE OF CONSULTATION: 11/01/2019 IDENTIFYING DATA: The patient is 49 years old and she is admitted to the hospital on a voluntary basis. CHIEF COMPLAINT: Depression. HISTORY OF PRESENT ILLNESS: The patient has a long history of psychiatric troubles. These are primarily associated with a depressive illness. She currently is endorsing numerous neurovegetative depressive symptoms along with a desire to kill herself, but a vague plan of intent. She wants to be referred to inpatient care, but the receiving facility where her psychiatrist practice is in [place] would not accept her because of some abdominal pain that had not been evaluated. The patient is not psychotic and she is not homicidal. She is severely depressed. ASSESSMENT: Major depression, severe, recurrent without psychotic features. PLAN: The patient can be maintained on her current dose of Effexor. She is crying hysterically and I have ordered a mg of Klonopin to calm her. I would recommend she be transferred to the [facility] as soon as it is practical to do so. TRANSINT:[id number] Voice Confirmation ID: [id number] DOCUMENT ID: [id number] SERGIO COHEN MD at 1302 CC: [id number] DICTATION DATE: 11/01/19 1610 LANDING MAN: 11/02/19 0031 ADM IN [id number] [place] [address]
--- NOTE | 2019-11-02 15:02 | NUR ---
PATIENT IN BED WITH IV INTACT. EYES CLOSED RESTING QUIETLY. NO COMPLAINTS OR SIGNS OF DISTRESS. CALL LIGHT WITHIN REACH. SITTER OUTSIDE OF ROOM.
--- NOTE | 2019-11-02 15:32 | MORECARE ---
CASE MANAGEMENT DISCHARGE SUMMARY PATIENT: CHICHO MCLAUGHLIN UNIT: [id number] ADM DATE: 10/31/19 AGE: 49 : 74 SEX: F ROOM/BED: D.2209 AUTHOR: ROMANA HERNÁNDEZ PHYSICIAN: REFERRING PHYSICIAN: ANTHONY RAO DO DATE OF SERVICE: 11/02/19 Discharge Plan Patient Name: CHICHO MCLAUGHLIN Facility: [facility]:[place] : 1970 Planned Disposition: Anticipated Discharge Date: Discharge Date: Expected LOS: Initial Reviewer: [email or web address] Initial Review Date: 11/01/2019 Generated: 11/02/19 4:31 pm Patient Name: CHICHO MCLAUGHLIN Page [phone] at 1532 All edits/amendments must be made on the electronic document DICTATION DATE: 11/02/19 153 SOCIAL WORKER PALLIATIVE CARE: NAVIN 11/02/19 1531 RPT#: [id number] [place] DATE: STATUS: ADM IN [facility] [address] [place] [address] END OF REPORT
--- NOTE | 2019-11-02 15:41 | MORECARE ---
CASE MANAGEMENT DISCHARGE SUMMARY PATIENT: CHICHO MCLAUGHLIN UNIT: [id number] ADM DATE: 10/31/19 AGE: 49 : 74 SEX: F ROOM/BED: D.2209 AUTHOR: ROMANA HERNÁNDEZ PHYSICIAN: REFERRING PHYSICIAN: ANTHONY RAO DO DATE OF SERVICE: 11/02/19 Discharge Plan Patient Name: CHICHO MCLAUGHLIN [facility] : 1970 Planned Disposition: Anticipated Discharge Date: Discharge Date: Expected LOS: Initial Reviewer: [email or web address] Initial Review Date: 11/01/2019 Generated: 11/02/19 4:40 pm Comments DCP- Discharge Planning Updated by [email or web address]: Rita Maxwell on 11/02/19 2:[address] SPOKE WITH FÉLIX AT THE TRANSFER CENTER AND SHE STATED THAT SHE SPOKE TO AN JENNIFER AT 0140 IN THE MORNING ABOUT THIS TRANSFER AND SHE TOLD HER TO CANCEL THIS UNTIL MD HAD RE EVALUATED HER. I EXPLAINED TO HER THAT DR COHEN NOTE STATED THAT SHE STILL NEEDS INPATIENT PSYCH AND RECOMMENDS [facility] I EXPLAINED THAT TO HER Last DP export: 11/02/19 2:32 p Patient Name: CHICHO MCLAUGHLIN Page [id number] at 1541 All edits/amendments must be made on the electronic document DICTATION DATE: 11/02/19 154 FLOOR MANAGER: NAVIN 11/02/19 1540 RPT#: [id number] DC DATE: STATUS: ADM IN [facility] [address] [place] [address] END OF REPORT
[2019-11-02 17:15] VITALS: BP 110/69
[2019-11-02 20:00] VITALS: BP 133/73
[2019-11-03] VITALS: BP 113/77
--- NOTE | 2019-11-03 03:41 | NUR ---
I have reviewed this patient and I concur with the Shift Assessment completed by the Licensed Practical Nurse today this shift.
[2019-11-03 04:00] VITALS: BP 120/68
[2019-11-03 07:09] LABS: ALBUMIN 3.8 g/dL (3.4-5.0); ANION GAP 10.2 mmol/L (8-16); BILIRUBIN - TOTAL 0.34 mg/dL (0.2-1.3); CARBON DIOXIDE 29.1 mmol/L (21.0-32.0); PROTEIN - SERUM 6.6 g/dL (6.4-8.2)
[2019-11-03 07:10] LABS: POTASSIUM - SERUM 4.3 mmol/L (3.5-5.1)
--- NOTE | 2019-11-03 07:39 | NUR ---
I have reviewed this patient and I concur with the Shift Assessment completed by the Licensed Practical Nurse today this shift.
--- NOTE | 2019-11-03 07:56 | MORECARE ---
CASE MANAGEMENT DISCHARGE SUMMARY PATIENT: CHICHO MCLAUGHLIN UNIT: [id number] ADM DATE: 10/31/19 AGE: 49 : 74 SEX: F ROOM/BED: D.2209 AUTHOR: ROMANA HERNÁNDEZ PHYSICIAN: REFERRING PHYSICIAN: ANTHONY RAO DO DATE OF SERVICE: 11/03/19 Discharge Plan Patient Name: CHICHO MCLAUGHLIN [facility] [facility] 1970 Planned Disposition: Anticipated Discharge Date: Discharge Date: Expected LOS: Initial Reviewer: [email or web address] Initial Review Date: 11/01/2019 Generated: 11/03/19 8:56 am Comments DCP- Discharge Planning Updated by [email or web address]: Rita Maxwell on 11/02/19 2:[address] SPOKE WITH FÉLIX AT THE TRANSFER CENTER AND SHE STATED THAT SHE SPOKE TO AN JENNIFER AT 0140 IN THE MORNING ABOUT THIS TRANSFER AND SHE TOLD HER TO CANCEL THIS UNTIL MD HAD RE EVALUATED HER. I EXPLAINED TO HER THAT DR COHEN NOTE STATED THAT SHE STILL NEEDS INPATIENT PSYCH AND RECOMMENDS [facility] I EXPLAINED THAT TO HER External Providers External Provider: [facility] Next Contact Date: Service Request Date: Service Type: Resolution: Reviewer: Comments: Last DP export: 11/02/19 2:41 p Patient Name: CHICHO MCLAUGHLIN Page [phone] at 0756 All edits/amendments must be made on the electronic document DICTATION DATE: 11/03/19 075 INSPECTOR FINAL ASSEMBLY CONVEYOR LINE: NAVIN 11/03/19 0756 RPT#: [id number] DC DATE: STATUS: ADM IN [facility] [address] [place] [address] END OF REPORT
[2019-11-03 08:02] LABS: BASOPHILS 0.3 % (0-2); EOSINOPHILS 3.1 % (0-7); HEMATOCRIT 37.3 % (36.0-48.0); HEMOGLOBIN 12.3 g/dL (12-16); IMMATURE GRANULOCYTES 0.2 % (0-5); LYMPHOCYTES 39.8 % (15-50); MCH 29.7 pg (26.0-34.0); MCV 90.1 fL (80.0-100.0); MEAN PLATELET VOLUME 9.4 fL (7.4-10.4); MONOCYTES 8.5 % (2-11); NEUTROPHILS 48.1 % (40-80); PLATELET COUNT 182 10x3/uL (130-400); RBC 4.14 10x6/uL (4.00-5.40); RDW 12.6 % (11.5-14.5); WBC 6.6 10x3/uL (4.8-10.8)
--- NOTE | 2019-11-03 08:16 | MORECARE ---
CASE MANAGEMENT DISCHARGE SUMMARY PATIENT: CHICHO MCLAUGHLIN UNIT: [id number] ADM DATE: 10/31/19 AGE: 49 : 74 SEX: F ROOM/BED: D.2209 AUTHOR: ROMANA HERNÁNDEZ PHYSICIAN: REFERRING PHYSICIAN: ANTHONY RAO DO DATE OF SERVICE: 11/03/19 Discharge Plan Patient Name: CHICHO MCLAUGHLIN Facility: [facility]:[place] : 1970 Planned Disposition: Anticipated Discharge Date: Discharge Date: Expected LOS: Initial Reviewer: [id number] Initial Review Date: 11/01/2019 Generated: 11/03/19 9:15 am Comments DCP- Discharge Planning Updated by [email or web address]: Rita Maxwell on 11/03/19 7:[address] CALLED THE TRANSFER CENTER TO GET AN UPDATE ON PATIENT, SPOKE WITH MAEVE. SHE DID NOT SEE ANY NOTES FROM MY CALL YESTERDAY. SO I HAVE SENT NEW PACKET TO HER AND SHE WAS GOING TO START WORKING ON IT. CM TO FOLLOW AND ASSIST NEEDED DCP- Discharge Planning Updated by [id number]: Rita Maxwell on 11/02/19 2:[address] SPOKE WITH FÉLIX AT THE TRANSFER CENTER AND SHE STATED THAT SHE SPOKE TO MILTON RODRIGUEZ AT 0140 IN THE MORNING ABOUT THIS TRANSFER AND SHE TOLD HER TO CANCEL THIS UNTIL MD HAD RE EVALUATED HER. I EXPLAINED TO HER THAT DR COHEN NOTE STATED THAT SHE STILL NEEDS INPATIENT PSYCH AND RECOMMENDS BRIDGEWAY I EXPLAINED THAT TO HER Last DP export: 11/03/19 6:56 a Patient Name: CHICHO MCLAUGHLIN Page [phone] at 0816 All edits/amendments must be made on the electronic document DICTATION DATE: 11/03/19814 PHOTO CARTOGRAPHER: NAVIN 11/03/19814 RPT#: [id number] DC DATE: STATUS: ADM IN [facility] [address] [place] [address] END OF REPORT
--- NOTE | 2019-11-03 08:45 | NUR ---
PATIENT IN BED WITH IV INTACT. NO COMPLAINTS OR SIGNS OF DISTRESS. CALL LIGHT WITHIN REACH.
[2019-11-03] MEDS ORDERED: EFFEXOR100 MG PO (10:51)
[2019-11-03] MEDS ORDERED: EFFEXOR XR75 MG PO (10:51)
[2019-11-03] MEDS ORDERED: KLONOPIN0.5 MG PO (10:51)
[2019-11-03 11:05] VITALS: BP 111/71
--- NOTE | 2019-11-03 12:38 | MORECARE ---
CASE MANAGEMENT DISCHARGE SUMMARY PATIENT: CHICHO MCLAUGHLIN UNIT: [id number] ADM DATE: 10/31/19 AGE: 49 : 74 SEX: F ROOM/BED: D.2209 AUTHOR: ROMANA HERNÁNDEZ PHYSICIAN: REFERRING PHYSICIAN: ANTHONY RAO DO DATE OF SERVICE: 11/03/19 Discharge Plan Patient Name: CHICHO MCLAUGHLIN Facility: [facility]:[place] : 1970 Planned Disposition: Psych facility Anticipated Discharge Date: Discharge Date: Expected LOS: Initial Reviewer: [id number] Initial Review Date: 11/01/2019 Generated: 11/03/19 1:38 pm Comments DCP- Discharge Planning Updated by [id number]: Rita Maxwell on 11/03/19 11:[address] RECEIVED A CALL FROM [employer] [facility] [employer] FROM [facility] AND HE STATED THAT THEY HAVE ACCEPTED THE PATIENT SHE WILL GO TO ROOM 215 BED -A DR TASHIA COTA IS ACCEPTING MD. THE NURSE TO CALL REPORT TO GA AT [phone]. I EXPLAINED TO THE PATIENT ABOUT THE ACCEPTING FACILITY. SHE ASKED ME TO CALL HER MOTHER, I ATTEMPTED TO DO THAT BUT HER MOM WAS NOT HOME AND I LEFT MESSAGE WITH HER SISTER FOR HER MOM TO CALL ME. I WILL TRY AGAIN. SHE WILL BE TRANSPORTED BY AMBULANCE. CM TO CONTINUE TO FOLLOW AND ASSIST NEEDED DCP- Discharge Planning Updated by [id number]: Rita Maxwell on 11/03/19 7:[address] CALLED THE TRANSFER CENTER TO GET AN UPDATE ON PATIENT, SPOKE WITH MAEVE. SHE DID NOT SEE ANY NOTES FROM MY CALL YESTERDAY. SO I HAVE SENT NEW PACKET TO HER AND SHE WAS GOING TO START WORKING ON IT. CM TO FOLLOW AND ASSIST NEEDED DCP- Discharge Planning Updated by [id number]: Rita Maxwell on 11/02/19 2:[address] SPOKE WITH FÉLIX AT THE TRANSFER CENTER AND SHE STATED THAT SHE SPOKE TO MILTON RODRIGUEZ AT 0140 IN THE MORNING ABOUT THIS TRANSFER AND SHE TOLD HER TO CANCEL THIS UNTIL MD HAD RE EVALUATED HER. I EXPLAINED TO HER THAT DR COHEN NOTE STATED THAT SHE STILL NEEDS INPATIENT PSYCH AND RECOMMENDS BRIDGEWAY I EXPLAINED THAT TO HER External Providers External Provider: [facility] Next Contact Date: Service Request Date: Service Type: Resolution: Reviewer: Comments: Last DP export: 11/03/19 7:16 a Patient Name: CHICHO MCLAUGHLIN Page 27517 at 1238 All edits/amendments must be made on the electronic document DICTATION DATE: 11/03/19 1238 PLANTING MACHINE CREWMAN: NAVIN 11/03/19 1238 RPT#: [id number] DC DATE: STATUS: ADM IN [facility] [address] [place] [address] END OF REPORT
--- NOTE | 2019-11-03 12:58 | MORECARE ---
CASE MANAGEMENT DISCHARGE SUMMARY PATIENT: CHICHO MCLAUGHLIN UNIT: [id number] ADM DATE: 10/31/19 AGE: 49 : 74 SEX: F ROOM/BED: D.2209 AUTHOR: ROMANA HERNÁNDEZ PHYSICIAN: REFERRING PHYSICIAN: ANTHONY RAO DO DATE OF SERVICE: 11/03/19 Discharge Plan Patient Name: CHICHO MCLAUGHLIN Facility: [facility]:[place] : 1970 Planned Disposition: Psych facility Anticipated Discharge Date: Discharge Date: Expected LOS: Initial Reviewer: [id number] Initial Review Date: 11/01/2019 Generated: 11/03/19 1:58 pm Comments DCP- Discharge Planning Updated by [id number]: Rita Maxwell on 11/03/19 11:[address] RECEIVED A CALL FROM [employer] FROM [facility] [place] AND HE STATED THAT THEY HAVE ACCEPTED THE PATIENT SHE WILL GO TO ROOM 215 BED -A DR TASHIA COTA IS ACCEPTING MD. THE NURSE TO CALL REPORT TO GA AT [phone]. I EXPLAINED TO THE PATIENT ABOUT THE ACCEPTING FACILITY. SHE ASKED ME TO CALL HER MOTHER, I ATTEMPTED TO DO THAT BUT HER MOM WAS NOT HOME AND I LEFT MESSAGE WITH HER SISTER FOR HER MOM TO CALL ME. I WILL TRY AGAIN. SHE WILL BE TRANSPORTED BY AMBULANCE. CM TO CONTINUE TO FOLLOW AND ASSIST NEEDED DCP- Discharge Planning Updated by [id number]: Rita Maxwell on 11/03/19 7:[address] CALLED THE TRANSFER CENTER TO GET AN UPDATE ON PATIENT, SPOKE WITH MAEVE. SHE DID NOT SEE ANY NOTES FROM MY CALL YESTERDAY. SO I HAVE SENT NEW PACKET TO HER AND SHE WAS GOING TO START WORKING ON IT. CM TO FOLLOW AND ASSIST NEEDED DCP- Discharge Planning Updated by [email or web address]: Rita Maxwell on 11/02/19 2:[address] SPOKE WITH FÉLIX AT THE TRANSFER CENTER AND SHE STATED THAT SHE SPOKE TO MILTON RODRIGUEZ AT 0140 IN THE MORNING ABOUT THIS TRANSFER AND SHE TOLD HER TO CANCEL THIS UNTIL MD HAD RE EVALUATED HER. I EXPLAINED TO HER THAT DR COHEN NOTE STATED THAT SHE STILL NEEDS INPATIENT PSYCH AND RECOMMENDS BRIDGEWAY I EXPLAINED THAT TO HER External Providers External Provider: Britt Next Contact Date: Service Request Date: Service Type: Resolution: Reviewer: Comments: Last DP export: 11/03/19 11:38 a Patient Name: CHICHO MCLAUGHLIN Page [phone] at 1258 All edits/amendments must be made on the electronic document DICTATION DATE: 11/03/191257 WELDER JOURNEYMAN: NAVIN 11/03/19 1258 RPT#: [id number] DC DATE: STATUS: ADM IN [facility] [address] [place] [address] END OF REPORT
--- NOTE | 2019-11-03 13:14 | MORECARE ---
CASE MANAGEMENT DISCHARGE SUMMARY PATIENT: CHICHO MCLAUGHLIN UNIT: [id number] ADM DATE: 10/31/19 AGE: 49 : 74 SEX: F ROOM/BED: D.7232 AUTHOR: BETTYDOC PHYSICIAN: REFERRING PHYSICIAN: ANTHONY RAO DO DATE OF SERVICE: 11/03/19 Discharge Plan Patient Name: CHICHO MCLAUGHLIN Facility: [facility]:[place] : 1970 Planned Disposition: Psych facility Anticipated Discharge Date: Discharge Date: Expected LOS: Initial Reviewer: [id number] Initial Review Date: 11/01/2019 Generated: 11/03/19 2:13 pm Comments DCP- Discharge Planning Updated by [email or web address]: Rita Maxwell on 11/03/19 12:[address] PATIENT'S MOTHER CALLED ME BACK AND I LET HER KNOW THAT HER DAUGHTER WAS ACCEPTED TO [facility]. HER MOM ASKED WHY SHE WAS NOT ACCEPTED TO [facility], THAT DR CLINE WAS EXPECTING HER. ( THIS IS HER MD ) I DID NOT HAVE THE ANSWER TO THAT. I CALLED THE TRANSFER CENTER AND SPOKE WITH MAEVE ABOUT THIS AND SHE COULD NOT ANSWER THIS. SHE DID NOT SEE IN THE CALL LOG WHERE [facility] HAD CALLED BACK AND DECLINED. I PERSONALLY CALLED [facility], I SPOKE WITH MONET THERE AND HE ASKED FOR UPDATED CLINICALS, HE STATED THAT WHEN THEY REFERRAL WAS SENT SHE WAS NOT MEDICALLY STABLE TO TRANSPORT & WHEN SHE BECAME STABLE THEY WERE TO REACH BACK OUT TO THEM. I AM ASSUMING THAT NEVER HAPPENED. THE PATIENT AND MOTHER WOULD LIKE TO GO TO THE FACILITY WHO KNOWS HER. I HAVE SENT UPDATED CLINICAL TO MONET AND HE WILL GET BACK WITH ME. CM TO FOLLOW DCP- Discharge Planning Updated by [id number]: Rita Maxwell on 11/03/19 11:[address] RECEIVED A CALL FROM GLORIA @ [phone] FROM [facility] AT [facility] AND HE STATED THAT THEY HAVE ACCEPTED THE PATIENT SHE WILL GO TO ROOM 215 BED -A DR TASHIA COTA IS ACCEPTING MD. THE NURSE TO CALL REPORT TO GA AT [phone]. I EXPLAINED TO THE PATIENT ABOUT THE ACCEPTING FACILITY. SHE ASKED ME TO CALL HER MOTHER, I ATTEMPTED TO DO THAT BUT HER MOM WAS NOT HOME AND I LEFT MESSAGE WITH HER SISTER FOR HER MOM TO CALL ME. I WILL TRY AGAIN. SHE WILL BE TRANSPORTED BY AMBULANCE. CM TO CONTINUE TO FOLLOW AND ASSIST NEEDED DCP- Discharge Planning Updated by [id number]: Rita Maxwell on 11/03/19 7:[address] CALLED THE TRANSFER CENTER TO GET AN UPDATE ON PATIENT, SPOKE WITH MAEVE. SHE DID NOT SEE ANY NOTES FROM MY CALL YESTERDAY. SO I HAVE SENT NEW PACKET TO HER AND SHE WAS GOING TO START WORKING ON IT. CM TO FOLLOW AND ASSIST NEEDED DCP- Discharge Planning Updated by [id number]: Rita Maxwell on 11/02/19 2:[address] SPOKE WITH FÉLIX AT THE TRANSFER CENTER AND SHE STATED THAT SHE SPOKE TO MILTON RODRIGUEZ AT 0140 IN THE MORNING ABOUT THIS TRANSFER AND SHE TOLD HER TO CANCEL THIS UNTIL MD HAD RE EVALUATED HER. I EXPLAINED TO HER THAT DR COHEN NOTE STATED THAT SHE STILL NEEDS INPATIENT PSYCH AND RECOMMENDS BRIDGEWAY I EXPLAINED THAT TO HER Last DP export: 11/03/19 11:58 a Patient Name: CHICHO MCLAUGHLIN Page [phone] at 1314 All edits/amendments must be made on the electronic document DICTATION DATE: 11/03/191312 DOUGH SHEETER: NAVIN 11/03/191312 RPT#: [id number] DC DATE: STATUS: ADM IN [facility] [address] [place] [address] END OF REPORT
--- NOTE | 2019-11-03 16:20 | NUR ---
PATIENT RECIEVED DC INSTRUCTIONS. VERBALIZED UNDERSTANDING. NO QUESTIONS AT THIS TIME. IV REMOVED WITH CATH TIP INTACT. WAITING FOR AMBULANCE TO COME GET PATIENT. CALL LIGHT WITHIN REACH.
--- NOTE | 2019-11-03 17:06 | MORECARE ---
CASE MANAGEMENT DISCHARGE SUMMARY PATIENT: CHICHO MCLAUGHLIN UNIT: [id number] ADM DATE: 10/31/19 AGE: 49 : 74 SEX: F ROOM/BED: D.9318 AUTHOR: BETTYDOC PHYSICIAN: REFERRING PHYSICIAN: ANTHONY RAO DO DATE OF SERVICE: 11/03/19 Discharge Plan Patient Name: CHICHO MCLAUGHLIN Facility: [facility]:[place] : 1970 Planned Disposition: Psych facility Anticipated Discharge Date: Discharge Date: Expected LOS: Initial Reviewer: [id number] Initial Review Date: 11/01/2019 Generated: 11/03/19 6:05 pm Comments DCP- Discharge Planning Updated by [email or web address]: Rita Maxwell on 11/03/19 12:[address] PATIENT'S MOTHER CALLED ME BACK AND I LET HER KNOW THAT HER DAUGHTER WAS ACCEPTED TO [facility] IN [facility]. HER MOM ASKED WHY SHE WAS NOT ACCEPTED TO [facility], THAT DR CLINE WAS EXPECTING HER. ( THIS IS HER MD ) I DID NOT HAVE THE ANSWER TO THAT. I CALLED THE TRANSFER CENTER AND SPOKE WITH MAEVE ABOUT THIS AND SHE COULD NOT ANSWER THIS. SHE DID NOT SEE IN THE CALL LOG WHERE EVIE HAD CALLED BACK AND DECLINED. I PERSONALLY CALLED [facility], I SPOKE WITH MONET THERE AND HE ASKED FOR UPDATED CLINICALS, HE STATED THAT WHEN THEY REFERRAL WAS SENT SHE WAS NOT MEDICALLY STABLE TO TRANSPORT & WHEN SHE BECAME STABLE THEY WERE TO REACH BACK OUT TO THEM. I AM ASSUMING THAT NEVER HAPPENED. THE PATIENT AND MOTHER WOULD LIKE TO GO TO THE FACILITY WHO KNOWS HER. I HAVE SENT UPDATED CLINICAL TO MONET AND HE WILL GET BACK WITH ME. CM TO FOLLOW DCP- Discharge Planning Updated by [email or web address]: Rita Maxwell on 11/03/19 11:[address] RECEIVED A CALL FROM GLORIA @ [phone] FROM [facility] AT [facility] AND HE STATED THAT THEY HAVE ACCEPTED THE PATIENT SHE WILL GO TO ROOM 215 BED -A DR TASHIA COTA IS ACCEPTING MD. THE NURSE TO CALL REPORT TO GA AT [phone]. I EXPLAINED TO THE PATIENT ABOUT THE ACCEPTING FACILITY. SHE ASKED ME TO CALL HER MOTHER, I ATTEMPTED TO DO THAT BUT HER MOM WAS NOT HOME AND I LEFT MESSAGE WITH HER SISTER FOR HER MOM TO CALL ME. I WILL TRY AGAIN. SHE WILL BE TRANSPORTED BY AMBULANCE. CM TO CONTINUE TO FOLLOW AND ASSIST NEEDED DCP- Discharge Planning Updated by [id number]: Rita Maxwell on 11/03/19 7:[address] CALLED THE TRANSFER CENTER TO GET AN UPDATE ON PATIENT, SPOKE WITH MAEVE. SHE DID NOT SEE ANY NOTES FROM MY CALL YESTERDAY. SO I HAVE SENT NEW PACKET TO HER AND SHE WAS GOING TO START WORKING ON IT. CM TO FOLLOW AND ASSIST NEEDED DCP- Discharge Planning Updated by [id number]: Riat Maxwell on 11/02/19 2:[address] SPOKE WITH FÉLIX AT THE TRANSFER CENTER AND SHE STATED THAT SHE SPOKE TO MILTON RODRIGUEZ AT 0140 IN THE MORNING ABOUT THIS TRANSFER AND SHE TOLD HER TO CANCEL THIS UNTIL MD HAD RE EVALUATED HER. I EXPLAINED TO HER THAT DR COHEN NOTE STATED THAT SHE STILL NEEDS INPATIENT PSYCH AND RECOMMENDS BRIDGEWAY I EXPLAINED THAT TO HER Last DP export: 11/03/19 12:14 p Patient Name: CHICHO MCLAUGHLIN Page [phone] at 1706 All edits/amendments must be made on the electronic document DICTATION DATE: 11/03/191704 GOODYEAR STITCHER: NAVIN 11/03/191704 RPT#: [id number] DC DATE: STATUS: ADM IN [facility] [address] [place] [address] END OF REPORT
--- NOTE | 2019-11-04 11:57 | MORECARE ---
CASE MANAGEMENT DISCHARGE SUMMARY PATIENT: CHICHO MCLAUGHLIN UNIT: [id number] ADM DATE: 10/31/19 AGE: 49 : 74 SEX: F ROOM/BED: D.1600 AUTHOR: BETTY,DOC PHYSICIAN: REFERRING PHYSICIAN: ANTHONY RAO DO DATE OF SERVICE: 11/04/19 Discharge Plan Patient Name: CHICHO MCLAUGHLIN Facility: [facility]:[place] : 1970 Planned Disposition: Psych facility Anticipated Discharge Date: Discharge Date: 11/03/2019 Expected LOS: Initial Reviewer: [id number] Initial Review Date: 11/01/2019 Generated: 11/04/19 12:56 pm Comments DCP- Discharge Planning Updated by [id number]: Rita Maxwell on 11/03/19 12:[address] PATIENT'S MOTHER CALLED ME BACK AND I LET HER KNOW THAT HER DAUGHTER WAS ACCEPTED TO [facility]. HER MOM ASKED WHY SHE WAS NOT ACCEPTED TO [facility], THAT DR CLINE WAS EXPECTING HER. ( THIS IS HER MD ) I DID NOT HAVE THE ANSWER TO THAT. I CALLED THE TRANSFER CENTER AND SPOKE WITH MAEVE ABOUT THIS AND SHE COULD NOT ANSWER THIS. SHE DID NOT SEE IN THE CALL LOG WHERE EVIE HAD CALLED BACK AND DECLINED. I PERSONALLY CALLED [facility], I SPOKE WITH MONET THERE AND HE ASKED FOR UPDATED CLINICALS, HE STATED THAT WHEN THEY REFERRAL WAS SENT SHE WAS NOT MEDICALLY STABLE TO TRANSPORT & WHEN SHE BECAME STABLE THEY WERE TO REACH BACK OUT TO THEM. I AM ASSUMING THAT NEVER HAPPENED. THE PATIENT AND MOTHER WOULD LIKE TO GO TO THE FACILITY WHO KNOWS HER. I HAVE SENT UPDATED CLINICAL TO MONET AND HE WILL GET BACK WITH ME. CM TO FOLLOW DCP- Discharge Planning Updated by [id number]: Rita Maxwell on 11/03/19 11:[address] RECEIVED A CALL FROM GLORIA @ [address] [facility] AT [facility] AND HE STATED THAT THEY HAVE ACCEPTED THE PATIENT SHE WILL GO TO ROOM 215 BED -A DR TASHIA COTA IS ACCEPTING MD. THE NURSE TO CALL REPORT TO GA AT [phone]. I EXPLAINED TO THE PATIENT ABOUT THE ACCEPTING FACILITY. SHE ASKED ME TO CALL HER MOTHER, I ATTEMPTED TO DO THAT BUT HER MOM WAS NOT HOME AND I LEFT MESSAGE WITH HER SISTER FOR HER MOM TO CALL ME. I WILL TRY AGAIN. SHE WILL BE TRANSPORTED BY AMBULANCE. CM TO CONTINUE TO FOLLOW AND ASSIST NEEDED DCP- Discharge Planning Updated by [id number]: Rita Maxwell on 11/03/19 7:[address] CALLED THE TRANSFER CENTER TO GET AN UPDATE ON PATIENT, SPOKE WITH MAEVE. SHE DID NOT SEE ANY NOTES FROM MY CALL YESTERDAY. SO I HAVE SENT NEW PACKET TO HER AND SHE WAS GOING TO START WORKING ON IT. CM TO FOLLOW AND ASSIST NEEDED DCP- Discharge Planning Updated by [id number]: Rita Maxwell on 11/02/19 2:[address] SPOKE WITH FÉLIX AT THE TRANSFER CENTER AND SHE STATED THAT SHE SPOKE TO AN JENNIFER AT 0140 IN THE MORNING ABOUT THIS TRANSFER AND SHE TOLD HER TO CANCEL THIS UNTIL MD HAD RE EVALUATED HER. I EXPLAINED TO HER THAT DR COHEN NOTE STATED THAT SHE STILL NEEDS INPATIENT PSYCH AND RECOMMENDS BRIDGEWAY I EXPLAINED THAT TO HER Last DP export: 11/03/19 4:06 p Patient Name: CHICHO MCLAUGHLIN Page [phone] at 1157 All edits/amendments must be made on the electronic document DICTATION DATE: 11/04/191155 SOCK KNITTING MACHINE OPERATOR: NAVIN 11/04/19 115 RPT#: [id number] DC DATE:11/03/19 STATUS: DIS IN [facility] [address] [place] [address] END OF REPORT
== END 2019-11-03 19:02 | disposition short-term general hospital (02) | DRG 885 ==
LOC: D.ER 14:42 → D.MS 22:27
PROVIDERS: Family Medicine; ADMIT Family Medicine; ATTEND Family Medicine
DX: F33.2 Major depressive disorder, recurrent severe without psychotic features (principal); R45.851 Suicidal ideations; F43.10 Post-traumatic stress disorder, unspecified; Z91.14 Patient's other noncompliance with medication regimen; G40.909 Epilepsy, unspecified, not intractable, without status epilepticus; E03.9 Hypothyroidism, unspecified